=== PATIENT | male | born 1945 | race Caucasian/White ===

== ENCOUNTER → 2017-05-13 | Outpatient (CLI) | payer MEDICARE, BC, OTHER ==
[2017-05-13 08:42] LABS: ALANINE AMINOTRANSFERASE 36 U/L (21-72); ALBUMIN 4.3 g/dL (3.5-5.0); ALKALINE PHOSPHATASE 68 U/L (38-126); ASPARTATE AMINO TRANSFERASE 24 U/L (17-59); BILIRUBIN,DIRECT 0.4 mg/dL (0.0-0.4); BILIRUBIN,TOTAL 0.7 mg/dL (0.2-1.3); CHOLESTEROL 90.75 mg/dL (0-200); Direct HDL 27 mg/dL (>40); TOTAL PROTEIN 6.7 g/dL (6.3-8.2); TRIGLYCERIDES 82 mg/dL (<150)
[2017-05-13 08:56] LABS: DIRECT LDL 47 mg/dL (<100)
== END ==
LOC: OD 07:07
PROVIDERS: ATTEND Specialist
DX: I25.10 Atherosclerotic heart disease of native coronary artery without angina pectoris (principal); Z95.1 Presence of aortocoronary bypass graft; R01.1 Cardiac murmur, unspecified; E78.5 Hyperlipidemia, unspecified; I34.0 Nonrheumatic mitral (valve) insufficiency; I36.1 Nonrheumatic tricuspid (valve) insufficiency; I44.7 Left bundle-branch block, unspecified; I10 Essential (primary) hypertension; E66.9 Obesity, unspecified; Z79.899 Other long term (current) drug therapy
CPT/HCPCS: 36415; 80061; 80076

== ENCOUNTER → 2017-09-24 | Outpatient (CLI) | payer MEDICARE, BC, OTHER ==
[2017-09-24 08:46] LABS: ALANINE AMINOTRANSFERASE 31 U/L (21-72); ALBUMIN 4.4 g/dL (3.5-5.0); ALKALINE PHOSPHATASE 62 U/L (38-126); ANION GAP 12 (5-19); ASPARTATE AMINO TRANSFERASE 25 U/L (17-59); BILIRUBIN,DIRECT 0.1 mg/dL (0.0-0.4); BILIRUBIN,TOTAL 0.3 mg/dL (0.2-1.3); BLOOD UREA NITROGEN 15 mg/dL (7-20); CARBON DIOXIDE 24 mmol/L (22-30); CHLORIDE 109 mmol/L (98-107); CHOLESTEROL 102.19 mg/dL (0-200); GLUCOSE 95 mg/dL (75-110); POTASSIUM 4.6 mmol/L (3.6-5.0); SODIUM 144.5 mmol/L (137-145); TOTAL PROTEIN 6.5 g/dL (6.3-8.2); TRIGLYCERIDES 67 mg/dL (<150)
[2017-09-24 08:57] LABS: DIRECT LDL 59 mg/dL (<100)
== END ==
LOC: OD 07:38
PROVIDERS: ATTEND Internal Medicine
DX: I25.10 Atherosclerotic heart disease of native coronary artery without angina pectoris (principal); Z95.1 Presence of aortocoronary bypass graft; R01.1 Cardiac murmur, unspecified; E78.5 Hyperlipidemia, unspecified; I34.0 Nonrheumatic mitral (valve) insufficiency; I36.1 Nonrheumatic tricuspid (valve) insufficiency; I44.7 Left bundle-branch block, unspecified; I10 Essential (primary) hypertension; E66.9 Obesity, unspecified; Z79.899 Other long term (current) drug therapy
CPT/HCPCS: 36415; 80053; 80061

== ENCOUNTER → 2018-03-30 | Outpatient (CLI) | payer MEDICARE, BC, OTHER ==
[2018-03-30 08:59] LABS: ALANINE AMINOTRANSFERASE 36 U/L (21-72); ALBUMIN 3.9 g/dL (3.5-5.0); ALKALINE PHOSPHATASE 59 U/L (38-126); ANION GAP 9 (5-19); ASPARTATE AMINO TRANSFERASE 27 U/L (17-59); BILIRUBIN,DIRECT 0.3 mg/dL (0.0-0.4); BILIRUBIN,TOTAL 0.5 mg/dL (0.2-1.3); BLOOD UREA NITROGEN 16 mg/dL (7-20); CALCIUM 9.6 mg/dL (8.4-10.2); CARBON DIOXIDE 24 mmol/L (22-30); CHLORIDE 108 mmol/L (98-107); GLUCOSE 107 mg/dL (75-110); POTASSIUM 4.5 mmol/L (3.6-5.0); TOTAL PROTEIN 6.7 g/dL (6.3-8.2); TRIGLYCERIDES 123 mg/dL (<150)
[2018-03-30 09:10] LABS: DIRECT LDL 55 mg/dL (<100)
== END ==
LOC: OD 07:11
PROVIDERS: ATTEND Internal Medicine
DX: I10 Essential (primary) hypertension (principal); I25.10 Atherosclerotic heart disease of native coronary artery without angina pectoris; E78.5 Hyperlipidemia, unspecified; Z79.899 Other long term (current) drug therapy
CPT/HCPCS: 36415; 80053; 80061

== ENCOUNTER → 2018-12-15 | Outpatient (CLI) | payer MEDICARE, BC, OTHER ==
[2018-12-15 08:25] LABS: ALANINE AMINOTRANSFERASE 47 U/L (21-72); ALKALINE PHOSPHATASE 60 U/L (38-126); ASPARTATE AMINO TRANSFERASE 39 U/L (17-59); BILIRUBIN,DIRECT 0.3 mg/dL (0.0-0.4); BILIRUBIN,TOTAL 0.5 mg/dL (0.2-1.3); CHOLESTEROL 90.92 mg/dL (0-200); TOTAL PROTEIN 6.7 g/dL (6.3-8.2); TRIGLYCERIDES 149 mg/dL (<150)
[2018-12-15 08:36] LABS: DIRECT LDL 52 mg/dL (<100)
== END ==
LOC: OD 07:16
PROVIDERS: ATTEND Internal Medicine
DX: I25.10 Atherosclerotic heart disease of native coronary artery without angina pectoris (principal); Z95.1 Presence of aortocoronary bypass graft; R01.1 Cardiac murmur, unspecified; E78.5 Hyperlipidemia, unspecified; I34.0 Nonrheumatic mitral (valve) insufficiency; I36.1 Nonrheumatic tricuspid (valve) insufficiency; I44.7 Left bundle-branch block, unspecified; I10 Essential (primary) hypertension; E66.9 Obesity, unspecified; Z79.899 Other long term (current) drug therapy
CPT/HCPCS: 36415; 80061; 80076

== ENCOUNTER → 2019-03-16 | Outpatient (CLI) | payer MEDICARE, BC, OTHER ==
[2019-03-16 10:37] LABS: ABSOLUTE EOSINOPHILS # (AUTO) 0.2 10^3/uL (0.0-0.6); ABSOLUTE LYMPHOCYTES (AUTO) 1.5 10^3/uL (0.5-4.7); ABSOLUTE MONOCYTES (AUTO) 0.7 10^3/uL (0.1-1.4); ABSOLUTE NEUT (AUTO) 4.8 10^3/uL (1.7-8.2); BASOPHILS % (AUTO) 0.6 % (0-2); EOSINOPHILS % (AUTO) 2.8 % (0-6); HEMATOCRIT 43.1 % (37.9-51.0); HEMOGLOBIN 14.6 g/dL (13.5-17.0); LYMPHOCYTES % (AUTO) 20.5 % (13-45); MEAN CORPUSCULAR HEMOGLOBIN 29.9 pg (27.0-33.4); MEAN CORPUSCULAR HGB CONC 33.8 g/dL (32.0-36.0); MEAN CORPUSCULAR VOLUME 89 fl (80-97); MONOCYTES % (AUTO) 9.6 % (3-13); PLATELET COUNT 164 10^3/uL (150-450); RED BLOOD COUNT 4.87 10^6/uL (4.35-5.55); SEGMENTED NEUTROPHILS % (AUTO) 66.5 % (42-78); TOTAL CELLS COUNTED % (AUTO) 100 %; WHITE BLOOD COUNT 7.3 10^3/uL (4.0-10.5)
[2019-03-16 11:03] LABS: ALBUMIN 4.1 g/dL (3.5-5.0); ALKALINE PHOSPHATASE 59 U/L (38-126); ANION GAP 9 (5-19); ASPARTATE AMINO TRANSFERASE 29 U/L (17-59); BILIRUBIN,DIRECT 0.2 mg/dL (0.0-0.4); BILIRUBIN,TOTAL 0.7 mg/dL (0.2-1.3); BLOOD UREA NITROGEN 18 mg/dL (7-20); CALCIUM 9.7 mg/dL (8.4-10.2); CARBON DIOXIDE 23 mmol/L (22-30); CHLORIDE 107 mmol/L (98-107); CHOLESTEROL 104.27 mg/dL (0-200); GLUCOSE 119 mg/dL (75-110); POTASSIUM 4.3 mmol/L (3.6-5.0); TOTAL PROTEIN 6.5 g/dL (6.3-8.2); TRIGLYCERIDES 203 mg/dL (<150)
[2019-03-16 11:15] LABS: DIRECT LDL 64 mg/dL (<100)
[2019-03-16 11:19] LABS: VLDL CHOLESTEROL 40.6 mg/dL (10-31)
== END ==
LOC: OD 09:45
PROVIDERS: ATTEND Specialist
DX: I25.10 Atherosclerotic heart disease of native coronary artery without angina pectoris (principal); Z95.1 Presence of aortocoronary bypass graft; R01.1 Cardiac murmur, unspecified; E78.5 Hyperlipidemia, unspecified; I34.0 Nonrheumatic mitral (valve) insufficiency; I36.1 Nonrheumatic tricuspid (valve) insufficiency; I44.7 Left bundle-branch block, unspecified; I10 Essential (primary) hypertension; E11.9 Type 2 diabetes mellitus without complications; E66.9 Obesity, unspecified; R94.31 Abnormal electrocardiogram [ECG] [EKG]; Z79.899 Other long term (current) drug therapy
CPT/HCPCS: 36415; 80053; 80061; 83036; 85025

== ENCOUNTER → 2019-09-12 | Outpatient (CLI) | payer MEDICARE, BC, OTHER ==
[2019-09-12 08:45] LABS: ABSOLUTE BASOPHILS # (AUTO) 0.1 10^3/uL (0.0-0.2); ABSOLUTE EOSINOPHILS # (AUTO) 0.1 10^3/uL (0.0-0.6); ABSOLUTE LYMPHOCYTES (AUTO) 1.6 10^3/uL (0.5-4.7); ABSOLUTE NEUT (AUTO) 5.2 10^3/uL (1.7-8.2); BASOPHILS % (AUTO) 0.7 % (0-2); EOSINOPHILS % (AUTO) 1.5 % (0-6); HEMATOCRIT 44.9 % (37.9-51.0); HEMOGLOBIN 15.7 g/dL (13.5-17.0); LYMPHOCYTES % (AUTO) 20.4 % (13-45); MEAN CORPUSCULAR HEMOGLOBIN 31.5 pg (27.0-33.4); MEAN CORPUSCULAR HGB CONC 34.9 g/dL (32.0-36.0); MEAN CORPUSCULAR VOLUME 90 fl (80-97); MONOCYTES % (AUTO) 12.2 % (3-13); PLATELET COUNT 192 10^3/uL (150-450); RED BLOOD COUNT 4.97 10^6/uL (4.35-5.55); RED CELL DISTRIBUTION WIDTH 14.3 % (11.5-14.0); SEGMENTED NEUTROPHILS % (AUTO) 65.2 % (42-78); TOTAL CELLS COUNTED % (AUTO) 100 %
[2019-09-12 09:34] LABS: ERYTHROCYTE SEDIMENTATION RATE 19 mm/hr (0-20)
== END ==
LOC: OD 07:45
PROVIDERS: ATTEND Physician Assistant
DX: M47.812 Spondylosis without myelopathy or radiculopathy, cervical region (principal)
CPT/HCPCS: 36415; 85025; 85652; 86140

== ENCOUNTER → 2019-12-22 | Outpatient (CLI) | payer MEDICARE, BC, OTHER ==
--- NOTE | 2019-12-22 14:51 | RADIOLOGY REPORT (SQ) ---
EXAM DESCRIPTION: FOOT LEFT COMPLETE IMAGES COMPLETED DATE/TIME: 12/22/2019 1:56 pm REASON FOR STUDY: PAIN IN LT ANKLE AND JOINTS OF LT FOOT M25.572 PAIN IN LEFT ANKLE AND JOINTS OF L EFT FOOT COMPARISON: None. NUMBER OF VIEWS: Three views. TECHNIQUE: AP, lateral and oblique radiographic images acquired of the left foot. LIMITATIONS: None. FINDINGS: MINERALIZATION: Normal. BONES: No acute fracture. There is a large os naviculare. Plantar calcaneal spur. JOINTS: No effusions. SOFT TISSUES: No soft tissue swelling. No foreign body. OTHER: No other significant finding. IMPRESSION: Calcaneal spur. Os naviculare. No acute finding. TECHNICAL DOCUMENTATION: JOB ID: [id number] 2010 [employer]- All Rights Reserved Reading location - IP/workstation name: [email or web address]
--- NOTE | 2019-12-22 14:52 | RADIOLOGY REPORT (SQ) ---
EXAM DESCRIPTION: TIBIA FIBULA LEFT IMAGES COMPLETED DATE/TIME: 12/22/2019 1:56 pm REASON FOR STUDY: PAIN IN LEFT ANKLE AND JOINTS OF LEFT FOOT M25.572 PAIN IN LEFT ANKLE AND JOINTS OF LEFT FOOT COMPARISON: None. NUMBER OF VIEWS: Two views. TECHNIQUE: Two radiographic images acquired of the left tibia and fibula to include the knee and ank le in at least one projection. LIMITATIONS: None. FINDINGS: MINERALIZATION: Normal. BONES: No acute fracture or dislocation. No worrisome bone lesions. SOFT TISSUES: No obvious swelling or foreign body. OTHER: Vascular clips. IMPRESSION: NEGATIVE STUDY OF THE LEFT TIBIA AND FIBULA. NO RADIOGRAPHIC EVIDENCE OF ACUTE INJURY. TECHNICAL DOCUMENTATION: JOB ID: [id number] 2010 [employer]- All Rights Reserved Reading location - IP/workstation name: [email or web address]
--- NOTE | 2019-12-22 14:53 | RADIOLOGY REPORT (SQ) ---
EXAM DESCRIPTION: ANKLE LEFT COMPLETE IMAGES COMPLETED DATE/TIME: 12/22/2019 1:57 pm REASON FOR STUDY: PAIN IN LEFT ANKLE AND JOINTS OF LEFT FOOT M25.572 PAIN IN LEFT ANKLE AND JOINTS OF LEFT FOOT COMPARISON: None. NUMBER OF VIEWS: Three views. TECHNIQUE: AP, lateral, and oblique radiographic images acquired of the left ankle. LIMITATIONS: None. FINDINGS: MINERALIZATION: Normal. BONES: No fracture dislocation. Plantar calcaneal spur. JOINTS: No effusions. SOFT TISSUES: No soft tissue swelling. No foreign body. OTHER: No other significant finding. IMPRESSION: Calcaneal spur. TECHNICAL DOCUMENTATION: JOB ID: [id number] 2010 [employer]- All Rights Reserved Reading location - IP/workstation name: [email or web address]
== END ==
LOC: RAD 11:56
PROVIDERS: ATTEND Specialist
DX: M77.32 Calcaneal spur, left foot (principal); M25.572 Pain in left ankle and joints of left foot; M79.89 Other specified soft tissue disorders

== ENCOUNTER 2020-02-28 11:16 | Observation (INO) | payer MEDICARE, BC, OTHER ==
--- NOTE | 2020-02-28 12:23 | ER Document Report ---
ED Medical Screen (RME) - General Chief Complaint: Shortness Of Breath Stated Complaint: SHORTNESS OF BREATH Time Seen by Provider: 02/28/20 12:20 Primary Care Provider: GRIS INFANTE MD [Primary Care Provider] - Follow up as needed Mode of Arrival: Wheelchair Information source: Patient Notes: 74-year-old male presented to ED for shortness of breath. He states he saw Dr. Hicks on Wednesday and pulmonary Wednesday evening he was having shortness of breath difficulty sleeping with tightness to his chest. States he cannot sleep all night he thought might be the hurricane but then again last night he had the shortness of breath all day yesterday and all night could not sleep so he called to get in to see [facility] and they could do a tele-visit this afternoon so instead he came to the emergency room. He states he does have a history of cardiac cath with stents. He states he is very short of breath and does need the COVID testing. I have greeted and performed a rapid initial assessment of this patient. A comprehensive ED assessment and evaluation of the patient, analysis of test results and completion of medical decision making process will be conducted by an additional ED providers. TRAVEL OUTSIDE OF THE [place] IN LAST 30 DAYS: No - Related Data Allergies/Adverse Reactions: No Known Allergies Allergy (Verified 12/05/15 22:45) Past Medical History - Past Medical History Cardiac Medical History: Reports: Hx Coronary Artery Disease, Hx Hypertension Denies: Hx Heart Attack Pulmonary Medical History: Denies: Hx Asthma, Hx Bronchitis, Hx COPD, Hx Pneumonia Neurological Medical History: Denies: Hx Cerebrovascular Accident, Hx Seizures Renal/ Medical History: Reports: Hx Kidney Stones GI Medical History: Reports: Hx Diverticulitis Musculoskeltal Medical History: Reports Hx Arthritis Psychiatric Medical History: Denies: Hx Depression Past Surgical History: Reports: Hx Cardiac Surgery - bypass -6, Hx Coronary Artery Bypass Graft - 6 vessel bypass in the , Hx Tonsillectomy - Immunizations Hx Diphtheria, Pertussis, Tetanus Vaccination: Yes Physical Exam - Vital signs Vitals: Temp Pulse Resp BP Pulse Ox 99.2 F 70 15 167/63 H 95 02/28/20 11:22 02/28/20 11:22 02/28/20 11:22 02/28/20 11:22 02/28/20 11:22 Course - Vital Signs Vital signs: Temp Pulse Resp BP Pulse Ox 99.2 F 70 15 167/63 H 95 02/28/20 11:22 02/28/20 11:22 02/28/20 11:22 02/28/20 11:22 02/28/20 11:22 Doctor's Discharge - Discharge Referrals: GRIS INFANTE MD [Primary Care Provider] - Follow up as needed
--- NOTE | 2020-02-28 14:11 | RADIOLOGY REPORT (SQ) ---
EXAM DESCRIPTION: CHEST SINGLE VIEW IMAGES COMPLETED DATE/TIME: 02/28/2020 2:03 pm REASON FOR STUDY: Chest tightness short of breath previous cath COMPARISON: 10/24/2015 NUMBER OF VIEWS: One view. TECHNIQUE: Single frontal radiographic view of the chest acquired. LIMITATIONS: None. FINDINGS: LUNGS AND PLEURA: No opacities, masses or pneumothorax. No pleural effusion. MEDIASTINUM AND HILAR STRUCTURES: No masses. Contour normal. HEART AND VASCULAR STRUCTURES: Heart enlarged without failure. Normal vasculature. BONES: No acute findings. HARDWARE: Midline surgical changes. OTHER: No other significant finding. IMPRESSION: HEART ENLARGED WITHOUT FAILURE. NO OTHER SIGNIFICANT RADIOGRAPHIC FINDING IN THE CHEST. TECHNICAL DOCUMENTATION: JOB ID: [id number] 2010 [employer]- All Rights Reserved Reading location - IP/workstation name: [email or web address]
[2020-02-28] MEDS ORDERED: ASPIRIN 325 MG TABLET PO ONE (14:46)
--- NOTE | 2020-02-28 14:53 | ER Document Report ---
ED General - General Chief Complaint: Shortness Of Breath Stated Complaint: SHORTNESS OF BREATH Time Seen by Provider: 02/28/20 12:20 Primary Care Provider: GRIS INFANTE MD [ACTIVE STAFF] - Follow up as needed Mode of Arrival: Wheelchair Notes: 74-year-old male with a history of 6 way bypass in 1993 presents emergency department complaining that he has not been sleeping well for the past several days secondary to shortness of breath whenever he tries to sleep though he specifically denies orthopnea. Patient states that given the symptoms he thought he should be tested for coronavirus. He made an appointment to be tested [facility] this afternoon however when he was walking through the store today he stated that he was very short of breath and had to get an electric scooter in order to navigate the store rather than walking and also had some mild chest pain associated with this. Patient stated he was so short of breath that he felt he should come to the emergency department rather than keeping his appointment with [facility]. 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 TRAVEL OUTSIDE OF THE [place] IN LAST 30 DAYS: No - Related Data Allergies/Adverse Reactions: No Known Allergies Allergy (Verified 12/05/15 22:45) Past Medical History - General Information source: Patient - Social History Smoking Status: Never Smoker Frequency of alcohol use: 1 glass of wine a day. Drug Abuse: None Family History: Reviewed & Not Pertinent - Past Medical History Cardiac Medical History: Reports: Hx Coronary Artery Disease, Hx Hypertension Denies: Hx Heart Attack Pulmonary Medical History: Denies: Hx Asthma, Hx Bronchitis, Hx COPD, Hx Pneumonia Neurological Medical History: Denies: Hx Cerebrovascular Accident, Hx Seizures Renal/ Medical History: Reports: Hx Kidney Stones GI Medical History: Reports: Hx Diverticulitis Musculoskeletal Medical History: Reports Hx Arthritis Psychiatric Medical History: Denies: Hx Depression Past Surgical History: Reports: Hx Cardiac Surgery - bypass -6, Hx Coronary Artery Bypass Graft - 6 vessel bypass in the , Hx Tonsillectomy - Immunizations Hx Diphtheria, Pertussis, Tetanus Vaccination: Yes Hx Pneumococcal Vaccination: 04/25/16 Review of Systems - Review of Systems Constitutional: No symptoms reported EENT: No symptoms reported Cardiovascular: See HPI, Chest pain Respiratory: See HPI, Short of breath Gastrointestinal: No symptoms reported -: Yes All other systems reviewed and negative Physical Exam - Vital signs Vitals: Temp Pulse Resp BP Pulse Ox 99.2 F 70 15 167/63 H 95 02/28/20 11:22 02/28/20 11:22 02/28/20 11:22 02/28/20 11:22 02/28/20 11:22 Interpretation: Hypertensive - Notes Notes: GENERAL: Alert, interacts well. No acute distress. HEAD: Normocephalic, atraumatic EYES: Pupils equal, round and reactive to light, extraocular movements intact. ENT: Oral mucosa moist, tongue midline. NECK: Full range of motion, supple, trachea midline. LUNGS: Trace rales in the bases, no wheezes, no respiratory distress. HEART: Regular rate and rhythm, no murmurs, gallops, rubs. ABDOMEN: Soft, nontender, nondistended, bowel sounds present in all 4 quadrants. EXTREMITIES: Moves all 4 extremities spontaneously, 1+ pitting edema bilateral lower extremities, radial and dorsalis pedis pulses 2/4 bilaterally. No cyanosis. NEUROLOGICAL: Alert and oriented x3, normal speech. PSYCH: Normal mood, normal affect. SKIN: Warm, Dry. Course - Re-evaluation Re-evalutation: 02/28/20 20:56 CBC unremarkable, CMP grossly unremarkable, troponin elevated at 0.124, proBNP elevated at 2290. COVID swab is pending. Chest x-ray shows cardiac enlargement without any failure. EKG is not acutely ischemic. Patient's chest pain is completely gone at this time. Discussed case with Dr. Infante who is his primary rig operator, Dr. Hicks requests that we obtain a CTA of the chest to look for pulmonary embolism. Feels that the patient can be appropriately managed here at [facility], no indication for transfer at this time. Agrees to consult on the patient as needed. 02/28/20 21:[address] Shepherd, agrees to admit the patient to a telemetry care unit bed. Aware that a CT angiogram of the chest is pending. - Vital Signs Vital signs: Temp Pulse Resp BP Pulse Ox 99.2 F 70 15 167/63 H 96 02/28/20 14:05 02/28/20 11:22 02/28/20 11:22 02/28/20 11:22 02/28/20 14:00 - Laboratory Result Diagrams: 02/28/20 16:00 02/28/20 17:17 Laboratory results interpreted by me: 02/28/20 02/28/20 02/28/20 16:00 17:17 19:10 RDW 14.2 H Glucose 143 H ALT 54 H NT-Pro-B Natriuret Pep 2290 H - EKG Interpretation by Me Additional EKG results interpreted by me: 02/28/20 20:58 EKG shows known atrial fibrillation at a rate of 66, left bundle branch block, does not meet sgarbossa criteria per my interpretation. Discharge - Discharge Clinical Impression: Elevated troponin, Atrial fibrillation with controlled ventricular rate Condition: Fair Disposition: ADMITTED OBSERVATION Admitting Provider: Cora (Hospitalist) Unit Admitted: Telemetry Referrals: GRIS INFANET MD [ACTIVE STAFF] - Follow up as needed
[2020-02-28 16:12] LABS: ABSOLUTE BASOPHILS # (AUTO) 0.1 10^3/uL (0.0-0.2); ABSOLUTE LYMPHOCYTES (AUTO) 1.6 10^3/uL (0.5-4.7); ABSOLUTE MONOCYTES (AUTO) 0.9 10^3/uL (0.1-1.4); ABSOLUTE NEUT (AUTO) 7.2 10^3/uL (1.7-8.2); BASOPHILS % (AUTO) 0.6 % (0-2); EOSINOPHILS % (AUTO) 0.2 % (0-6); HEMATOCRIT 45.6 % (37.9-51.0); HEMOGLOBIN 15.7 g/dL (13.5-17.0); LYMPHOCYTES % (AUTO) 16.7 % (13-45); MEAN CORPUSCULAR HEMOGLOBIN 31.2 pg (27.0-33.4); MEAN CORPUSCULAR HGB CONC 34.4 g/dL (32.0-36.0); MEAN CORPUSCULAR VOLUME 91 fl (80-97); MONOCYTES % (AUTO) 9.1 % (3-13); PLATELET COUNT 173 10^3/uL (150-450); RED BLOOD COUNT 5.02 10^6/uL (4.35-5.55); RED CELL DISTRIBUTION WIDTH 14.2 % (11.5-14.0); SEGMENTED NEUTROPHILS % (AUTO) 73.4 % (42-78); TOTAL CELLS COUNTED % (AUTO) 100 %; WHITE BLOOD COUNT 9.9 10^3/uL (4.0-10.5)
[2020-02-28 17:51] LABS: ALBUMIN 4.1 g/dL (3.5-5.0); ALKALINE PHOSPHATASE 71 U/L (38-126); ANION GAP 6 (5-19); ASPARTATE AMINO TRANSFERASE 43 U/L (17-59); BILIRUBIN,TOTAL 0.9 mg/dL (0.2-1.3); BLOOD UREA NITROGEN 14 mg/dL (7-20); CALCIUM 9.5 mg/dL (8.4-10.2); CARBON DIOXIDE 26 mmol/L (22-30); CHLORIDE 106 mmol/L (98-107); CREATINE KINASE 89 U/L (55-170); GLUCOSE 143 mg/dL (75-110); POTASSIUM 4.2 mmol/L (3.6-5.0); TOTAL PROTEIN 6.8 g/dL (6.3-8.2)
--- NOTE | 2020-02-28 18:20 | EKG REPORT ---
SEVERITY:- ABNORMAL ECG - ATRIAL FIBRILLATION LEFT BUNDLE BRANCH BLOCK : Confirmed by: Ever Live MD 28-Feb-2020 18:19:35
[2020-02-28 19:54] LABS: TROPONIN I 0.124 ng/mL
[2020-02-28] MEDS ORDERED: ENOXAPARIN SODIUM INJ 120 MG/0.8 ML DISP.SYRIN SUBCUT ONE (20:59)
--- NOTE | 2020-02-28 22:09 | RADIOLOGY REPORT (SQ) ---
PROCEDURE: CTA chest with contrast Completed dated and timed: 02/28/2020 9:25 PM CLINICAL HISTORY: 74 years Male chest pain, SOB, r/o PE COMPARISON: None. TECHNIQUE: Contiguous axial images were obtained through the chest during the infusion of IV contrast. Reformatted images obtained. MIP reformatted images obtained. This exam was performed according to our department optimization program which includes automated exposure control, adjustment of the mA and/or kv according to patient size and/or use of iterative reconstruction technique. FINDINGS: Small bilateral effusions. Cardiac enlargement. Pulmonary arteries are prominent suggesting hypertension. No evidence of filling defect to suggest pulmonary embolus. Scattered small mediastinal lymph nodes. Aorta is normal in caliber. Fatty infiltration of the liver Coronary and aortic calcification. No acute consolidation. IMPRESSION:No evidence of pulmonary embolus Basilar atelectasis and small effusions Fatty infiltration of the liver Cardiac enlargement
--- NOTE | 2020-02-28 22:35 | PDOC CONSULTATION ---
Consultation-Blank Consultation: CARDIOLOGY CONSULTATION by Dr. Radha Pierce on 02/28/2020. Patient seen at 1 PM. 60 minutes spent as patient more than 50% time spent in direct patient care. REASON FOR CONSULTATION: Patient of mine admitted with history of dyspnea on exertion and atrial fibrillation with slow ventricular response. CONSULT REQUESTING PHYSICIAN: Dr. Robert Montero. [facility] [place] hospitalist physician group. HISTORY OF PRESENT ILLNESS: Patient is a 74-year-old male with known history of coronary artery disease, history of coronary artery bypass graft surgery, history of prior myocardial infarction with no recent anginal symptoms, history of hypertension and history of mild cardiomyopathy admitted with 2 to 3 days of progressive dyspnea on exertion. The patient is also found to be in atrial fibrillation. He has chronic left bundle branch block pattern. He denies any PND orthopnea or leg edema. There is no palpitations or syncope. It is not clear as to how long he has had this atrial fibrillation. He has no dizziness or syncope or near syncope. There is no TIA CVA symptoms. Past Medical History Cardiac Medical History: Reports: , Congestive Heart Failure - Chronic combined systolic and diastolic congestive heart failure, Coronary Artery Disease, Hyperlipidema, Hypertension Denies: DVT, Myocardial Infarction, Peripheral Vascular Disease, Pulmonary Embolism Pulmonary Medical History: Denies: Asthma, Bronchitis, Chronic Obstructive Pulmonary Disease (COPD), Pneumonia, Respiratory Failure, Sleep Apnea EENT Medical History: Reports: Eyes - Wears eyeglasses Denies: Ears - Hearing aids Neurological Medical History: Denies: Hemorrhagic CVA, Ischemic CVA, Seizures Endocrine Medical History: Reports: Obesity Denies: Diabetes Mellitus Type 1, Diabetes Mellitus Type 2, Hyperthyroidism, Hypothyroidism Renal/ Medical History: Reports: Nephrolithiasis, Other - Benign prostatic hyperplasia Denies: Chronic Kidney Disease Malignancy Medical History: Reports: None GI Medical History: Reports: Diverticulitis Denies: Cirrhosis, Crohn's Disease, Gastroesophageal Reflux Disease, Hepatitis, Peptic Ulcer Disease, Ulcerative Colitis Musculoskeltal Medical History: Reports: Arthritis Denies: Fibromyalgia, Gout Skin Medical History: Denies: Eczema, Psoriasis Psychiatric Medical History: Denies: Alcohol Dependency, Depression, Substance Abuse, Tobacco Dependency Traumatic Medical History: Reports: None Hematology: Denies: Anemia, Bleeding Tendencies Infectious Medical History: Reports: None Past Surgical History Past Surgical History: Reports: Cardiac Catheterization, Coronary Artery Bypass Graft - 6 vessel bypass in the 1993, Tonsillectomy Social History Information Source: Patient Lives with: Spouse/Significant other Smoking Status: Former Smoker Electronic Cigarette use?: No Frequency of Alcohol Use: Occasional Hx Recreational Drug Use: No Drugs: None Hx Prescription Drug Abuse: No - Advance Directive Resuscitation Status: Full Code Surrogate healthcare decision maker:: Kylah Lynn Family History Family History: CAD - Father, Malignancy - Mother Parental Family History Reviewed: Yes Children Family History Reviewed: No Sibling(s) Family History Reviewed.: Yes Medication/Allergy Home Medications: Atenolol [Tenormin 25 mg Tablet] 25 mg PO DAILY 11/06/11 Clopidogrel Bisulfate [Plavix 75 mg Tablet] 75 mg PO DAILY 11/06/11 Multivitamin [Multivitamins] 1 cap PO DAILY 11/06/11 Telmisartan [Micardis 20 mg Tablet] 20 mg PO Q12 11/06/11 Ezetimibe [Zetia 10 mg Tablet] 10 mg PO DAILY 11/24/13 Rosuvastatin Calcium [Crestor 20 mg Tablet] 20 mg PO DAILY 12/17/15 [place]-3/Dha/Epa/Fish Oil [Fish Oil 1,000 mg Softgel] 1 cap PO DAILY 02/28/20 Furosemide [Lasix 20 mg Tablet] 20 mg PO QAM 02/29/20 Isosorbide Mononitrate [Imdur 60 mg Tablet.er] 30 mg PO BID 02/29/20 Multivit-Min/FA/Lycopen/Lutein [Centrum Silver Men Tablet] 1 each PO DAILY 02/29/20 Allergies/Adverse Reactions: No Known Allergies Allergy (Verified 12/05/15 22:45) His current medications have been reviewed as per MAR. RESUSCITATION STATUS: The patient is a full code. His daughter is a surrogate healthcare decision maker. Review of Systems Constitutional: ABSENT: chills Eyes: ABSENT: visual disturbances, other - Eye pain Ears: ABSENT: hearing changes, other - Ear pain Nose, Mouth, and Throat: ABSENT: headache(s), sore throat Cardiovascular: PRESENT: as per HPI, chest pain - Tightness, dyspnea on exertion. ABSENT: edema, orthropnea, palpitations Respiratory: PRESENT: as per HPI, dyspnea. ABSENT: cough Gastrointestinal: ABSENT: abdominal pain, constipation, diarrhea, nausea, vomiting Genitourinary: ABSENT: dysuria, hematuria Musculoskeletal: ABSENT: joint swelling, muscle weakness Integumentary: ABSENT: pruritus, rash Neurological: ABSENT: confusion, convulsions, focal weakness, memory loss, syncope Psychiatric: ABSENT: anxiety, depression Endocrine: ABSENT: cold intolerance, heat intolerance Hematologic/Lymphatic: ABSENT: easy bleeding, easy bruising Allergic/Immunologic: ABSENT: seasonal rhinorrhea PHYSICAL EXAMINATION: The patient is morbidly obese. In no acute distress HEAD: Is atraumatic normocephalic. EYES: Pupils are equal round regular reactive light accommodation. Extraocular movements are normal. There is no conjunctival pallor. There is no scleral icterus. EARS: Tympanic membranes are intact. External auditory canals are clear. NOSE: There is no deviated nasal septum. There is no inflammation nasal mucous membrane. MOUTH: Mucous membranes of mouth are moist. Tongue is moist. There is no ulcers. There is no bleeding from the gums. THROAT: There is no redness of the oropharynx. There is no exudates. SKIN: There is no skin rashes. There is no delfina-care ecchymosis. There is no skin lesions. NECK: Is supple. There is no JVD carotids are equal there is no bruit there is no lymphadenopathy. There is no goiter. LUNGS: Clear to auscultation percussion. Heart S1-S2 is heard. There is no S3 gallop. There is no S4 gallop. S1 of variable intensity. There is systolic murmur left sternal border and the apex there is no rub. ABDOMEN: Is soft obese nontender there is no hepatosplenomegaly. Bowel sounds are well heard. Extremities femorals are deep. There is no femoral bruits. Leg pulses are well felt. There is no pedal edema. There is no DVT or cellulitis. There is no cyanosis or clubbing. CRISIS MENTAL HEALTH THERAPIST: Patient is conscious awake alert oriented x3 with no focal deficit. PSYCHIATRIC: The patient judgment site are intact his affect is normal. His EKG shows atrial fibrillation with slow ventricular response. Left bundle branch block pattern. Chest X-Ray 02/28/20 12:20 IMPRESSION: HEART ENLARGED WITHOUT FAILURE. NO OTHER SIGNIFICANT RADIOGRAPHIC FINDING IN THE CHEST. Chest/Abdomen CTA 02/28/20 20:33 IMPRESSION:No evidence of pulmonary embolus Basilar atelectasis and small effusions Fatty infiltration of the liver Cardiac enlargement Labs- Entire Visit Labs- Entire Visit 02/28/20 02/28/2002/27/20 16:00 16:00 16:00 WBC 9.9 RBC 5.02 Hgb 15.7 Hct 45.6 MCV 91 MCH 31.2 MCHC 34.4 RDW 14.2 H Plt Count 173 Lymph % (Auto) 16.7 [place] % (Auto) 9.1 Eos % (Auto) 0.2 Baso % (Auto) 0.6 Absolute Neuts (auto) 7.2 Absolute Lymphs (auto) 1.6 Absolute Monos (auto) 0.9 Absolute Eos (auto) 0.0 Absolute Basos (auto) 0.1 Seg Neutrophils % 73.4 D-Dimer Sodium Cancelled Potassium Cancelled Chloride Cancelled Carbon Dioxide Cancelled Anion Gap Cancelled BUN Cancelled Creatinine Cancelled Est GFR ( Amer) Cancelled Est GFR (Non-Af Amer) Cancelled Est GFR (MDRD) Non-Af Cancelled Glucose Cancelled Calcium Cancelled Magnesium Cancelled Total Bilirubin Cancelled Direct Bilirubin Cancelled Neonat Total Bilirubin Cancelled Neonat Direct Bilirubin Cancelled Neonat Indirect Bili Cancelled AST Cancelled ALT Cancelled Alkaline Phosphatase Cancelled Creatine Kinase Cancelled CK-MB (CK-2) Troponin I Cancelled C-Reactive Protein NT-Pro-B Natriuret Pep Cancelled Total Protein Cancelled Albumin Cancelled EGFR Cancelled COVID-19 Source COVID-19 (KELVIN) 02/28/20 02/28/20 02/28/20 16:43 17:17 19:10 WBC RBC Hgb Hct MCV MCH MCHC RDW Plt Count Lymph % (Auto) [place] % (Auto) Eos % (Auto) Baso % (Auto) Absolute Neuts (auto) Absolute Lymphs (auto) Absolute Monos (auto) Absolute Eos (auto) Absolute Basos (auto) Seg Neutrophils % D-Dimer Sodium 137.7 Potassium 4.2 Chloride 106 Carbon Dioxide 26 Anion Gap 6 BUN 14 Creatinine 0.88 Est GFR ( Amer) > 60 Est GFR (Non-Af Amer) Est GFR (MDRD) Non-Af > 60 Glucose 143 H Calcium 9.5 Magnesium 2.0 Total Bilirubin 0.9 Direct Bilirubin 0.0 Neonat Total Bilirubin Not Reportable Neonat Direct Bilirubin Not Reportable Neonat Indirect Bili Not Reportable AST 43 ALT 54 H Alkaline Phosphatase 71 Creatine Kinase 89 CK-MB (CK-2) Troponin I 0.124 C-Reactive Protein NT-Pro-B Natriuret Pep 2290 H Total Protein 6.8 Albumin 4.1 EGFR COVID-19 Source NASOPHARYNGEAL COVID-19 (KELVIN) NOT DETECTED IMPRESSION/RECOMMENDATION: 1. Atrial fibrillation with controlled ventricular response..? Duration of atrial fibrillation. The patient is Javier vacs corrected score is is 4. [2 for patient's age 1 for hypertension and one for coronary artery disease]. Hence I have discussed the benefits and risk prophylaxis with Eliquis and the bleeding complications. We will start the patient on Eliquis. Rate is controlled on current beta-leonor dosage. 2. Borderline elevated troponin iron levels. Most likely supply demand m ismatch. Secondary to atrial fibrillation. No definite evidence of non-ST elevation [place]. 3. Dyspnea on exertion this is most likely secondary to patient's atrial fibrillation with loss of atrial kick, and patient is obese, deconditioning and ? Pulmonary hypertension. Will check an echo as an outpatient. 4. Abnormal EKG with the patient showing left bundle branch block pattern. 5. Bradycardia, will decrease the patient's beta-leonor dosage. Would recommend that the patient have a 30-day event monitor to see if the patient has tachybradycardia syndrome. 6. Coronary artery disease: History of prior myocardial infarction and history of coronary bypass graft surgery. No anginal symptoms. Later would recommend that the patient have repeat IV Lexiscan Cardiolite stress test. This can be done as an outpatient. 7. Hypertension: Blood pressure high with reasons to the patient's ARB. 8. High suspicion for obstructive sleep apnea: We will check the patient's nocturnal O2 saturation and also would get an outpatient sleep study. Medications reviewed. Medications adjusted. Medical regimen and management plan discussed with RN provider on the case. Medical decision making is of high complexity. 60 minutes spent as patient more than 50% of time spent direct patient care. Will follow.
[2020-02-29] MEDS ORDERED: ONDANSETRON HCL INJ/PF 4 MG/2 ML SDV IV PRN ×2 (01:10→08:00)
[2020-02-29] MEDS ORDERED: LEVALBUTEROL HCL NEB 0.63 MG/3 ML AMPUL NEB PRN (01:10)
[2020-02-29] MEDS ORDERED: MAG HYDROX/AL HYDROX/SIMETH SUSP 30 ML UDCUP PO PRN (01:10)
[2020-02-29] MEDS ORDERED: MAGNESIUM HYDROXIDE SUSP 30 ML UDCUP PO PRN (01:10)
[2020-02-29] MEDS ORDERED: ACETAMINOPHEN 325 MG TABLET PO PRN (01:20)
[2020-02-29] MEDS ORDERED: GUAIFENESIN SYRP 200 MG/10 ML UDC PO PRN (01:20)
[2020-02-29] MEDS ORDERED: MORPHINE SULFATE 10 MG/ML INJ IV PRN ×4 (01:20→02:00)
[2020-02-29] MEDS ORDERED: MELATONIN 5 MG TABLET PO PRN (01:20)
[2020-02-29] MEDS ORDERED: HYDRALAZINE HCL INJ/PF 20 MG/1 ML SDV IV PRN (01:20)
[2020-02-29] MEDS ORDERED: LORAZEPAM INJ 2 MG/1 ML VIAL IV PRN (01:20)
[2020-02-29 03:03] LABS: CREATINE KINASE MB 2.13 ng/mL (<4.55); TROPONIN I 0.12 ng/mL
--- NOTE | 2020-02-29 06:29 | PDOC H&P ---
History of Present Illness Admission Date/PCP: 02/28/2020 21:23 ABELINO BANUELOS PA-C Patient complains of: Dyspnea History of Present Illness: CRISELDA LYNN is a 74 year old male who presented to the emergency room with a 2-day history of dyspnea. He admits developing dyspnea on the evening of 02/26/2020 which has remained constantly present and progressively worsened to become moderate at rest and is increased to severe with exertion or activity. His dyspnea has been associated with mild generalized anterior chest tightness. He denies other associated or accompanying signs and symptoms. He denies prior similar episodes. He has not identified any additional aggravating or amel iorating factors for his dyspnea. In the emergency room he was found to have chronic atrial fibrillation with a left bundle branch block and a mildly elevated serum troponin at 0.124. His BNP was also mildly elevated at 2290. The emergency room physician contacted Dr. Pierce, his freight sorter, who recommended he be admitted to observation status with a consult for himself to see the patient in the morning. Patient was subsequently admitted to the telemetry unit on observation status. Patient was tested for COVID-19 in the emergency room at his request and will therefore be a patient under investigation on the COVID unit. Past Medical History Cardiac Medical History: Reports: Atrial Fibrillation - Chronic, Congestive Heart Failure - Chronic combined systolic and diastolic congestive heart failure, Coronary Artery Disease, Hyperlipidema, Hypertension Denies: DVT, Myocardial Infarction, Peripheral Vascular Disease, Pulmonary Embolism Pulmonary Medical History: Denies: Asthma, Bronchitis, Chronic Obstructive Pulmonary Disease (COPD), Pneumonia, Respiratory Failure, Sleep Apnea EENT Medical History: Reports: Eyes - Wears eyeglasses Denies: Ears - Hearing aids Neurological Medical History: Denies: Hemorrhagic CVA, Ischemic CVA, Seizures Endocrine Medical History: Reports: Obesity Denies: Diabetes Mellitus Type 1, Diabetes Mellitus Type 2, Hyperthyroidism, Hypothyroidism Renal/ Medical History: Reports: Nephrolithiasis, Other - Benign prostatic hyperplasia Denies: Chronic Kidney Disease Malignancy Medical History: Reports: None GI Medical History: Reports: Diverticulitis Denies: Cirrhosis, Crohn's Disease, Gastroesophageal Reflux Disease, Hepat itis, Peptic Ulcer Disease, Ulcerative Colitis Musculoskeltal Medical History: Reports: Arthritis Denies: Fibromyalgia, Gout Skin Medical History: Denies: Eczema, Psoriasis Psychiatric Medical History: Denies: Alcohol Dependency, Depression, Substance Abuse, Tobacco Dependency Traumatic Medical History: Reports: None Hematology: Denies: Anemia, Bleeding Tendencies Infectious Medical History: Reports: None Past Surgical History Past Surgical History: Reports: Cardiac Catheterization, Coronary Artery Bypass Graft - 6 vessel bypass in the 1994, Tonsillectomy Social History Information Source: Patient Lives with: Spouse/Significant other Smoking Status: Former Smoker Electronic Cigarette use?: No Frequency of Alcohol Use: Occasional Hx Recreational Drug Use: No Drugs: None Hx Prescription Drug Abuse: No - Advance Directive Resuscitation Status: Full Code Surrogate healthcare decision maker:: Kylah Lynn Family History Family History: CAD - Father, Malignancy - Mother Parental Family History Reviewed: Yes Children Family History Reviewed: No Sibling(s) Family History Reviewed.: Yes Medication/Allergy Home Medications: Atenolol [Tenormin 25 mg Tablet] 25 mg PO DAILY 11/06/11 Clopidogrel Bisulfate [Plavix 75 mg Tablet] 75 mg PO DAILY 11/06/11 Multivitamin [Multivitamins] 1 cap PO DAILY 11/06/11 Telmisartan [Micardis 20 mg Tablet] 20 mg PO Q12 11/06/11 Ezetimibe [Zetia 10 mg Tablet] 10 mg PO DAILY 11/24/13 Rosuvastatin Calcium [Crestor 20 mg Tablet] 20 mg PO DAILY 12/17/15 [place]-3/Dha/Epa/Fish Oil [Fish Oil 1,000 mg Softgel] 1 cap PO DAILY 02/28/20 Furosemide [Lasix 20 mg Tablet] 20 mg PO QAM 02/29/20 Isosorbide Mononitrate [Imdur 60 mg Tablet.er] 30 mg PO BID 02/29/20 Multivit-Min/FA/Lycopen/Lutein [Centrum Silver Men Tablet] 1 each PO DAILY 02/29/20 Allergies/Adverse Reactions: No Known Allergies Allergy (Verified 12/05/15 22:45) Review of Systems Constitutional: ABSENT: chills Eyes: ABSENT: visual disturbances, other - Eye pain Ears: ABSENT: hearing changes, other - Ear pain Nose, Mouth, and Throat: ABSENT: headache(s), sore throat Cardiovascular: PRESENT: as per HPI, chest pain - Tightness, dyspnea on exertion. ABSENT: edema, orthropnea, palpitations Respiratory: PRESENT: as per HPI, dyspnea. ABSENT: cough Gastrointestinal: ABSENT: abdominal pain, constipation, diarrhea, nausea, vomiting Genitourinary: ABSENT: dysuria, hematuria Musculoskeletal: ABSENT: joint swelling, muscle weakness Integumentary: ABSENT: pruritus, rash Neurological: ABSENT: confusion, convulsions, focal weakness, memory loss, syncope Psychiatric: ABSENT: anxiety, depression Endocrine: ABSENT: cold intolerance, heat intolerance Hematologic/Lymphatic: ABSENT: easy bleeding, easy bruising Allergic/Immunologic: ABSENT: seasonal rhinorrhea Physical Exam Vital Signs: Temp Pulse Resp BP Pulse Ox 99.2 F 70 15 167/63 H 96 02/28/20 14:05 02/28/20 11:22 02/28/20 11:22 02/28/20 11:22 02/28/20 14:00 Intake & Output 02/26/20 02/27/20 02/28/20 23:59 23:59 23:59 Weight 115.212 kg General appearance: PRESENT: no acute distress, cooperative, morbidly obese Head exam: PRESENT: atraumatic, normocephalic Eye exam: PRESENT: conjunctiva pink. ABSENT: conjunctival injection, scleral icterus Ear exam: PRESENT: normal external ear exam. ABSENT: bleeding, drainage Mouth exam: PRESENT: dry mucosa, neck supple Neck exam: ABSENT: JVD - Absent at 30 degrees of elevation, thyromegaly, tracheal deviation Respiratory exam: PRESENT: rales - Bibasilar fine rales, symmetrical, unlabored Cardiovascular exam: PRESENT: irregular rhythm - Irregularly irregular rate and rhythm. ABSENT: clicks, gallop, rubs Pulses: PRESENT: normal radial pulses, normal dorsalis pedis pul Vascular exam: PRESENT: normal capillary refill. ABSENT: pallor GI/Abdominal exam: PRESENT: normal bowel sounds, soft. ABSENT: tenderness Rectal exam: PRESENT: deferred Extremities exam: PRESENT: other - 2+ pitting bilateral pretibial edema. ABSENT: joint swelling, pedal edema Musculoskeletal exam: ABSENT: deformity, dislocation Neurological exam: PRESENT: alert, oriented to person, oriented to place, oriented to time, oriented to situation, CN II-XII grossly intact. ABSENT: motor sensory deficit Psychiatric exam: PRESENT: appropriate affect, normal mood Skin exam: PRESENT: dry, intact, warm. ABSENT: jaundice, rash, urticaria Results Laboratory Results: 02/28/20 16:00 02/28/20 17:17 08/12/1202/28/20 02/28/20 16:00 16:00 17:17 WBC 9.9 RBC 5.02 Hgb 15.7 Hct 45.6 MCV 91 MCH 31.2 MCHC 34.4 RDW 14.2 H Plt Count 173 Seg Neutrophils % 73.4 Sodium Cancelled 137.7 Potassium Cancelled 4.2 Chloride Cancelled 106 Carbon Dioxide Cancelled 26 Anion Gap Cancelled 6 BUN Cancelled 14 Creatinine Cancelled 0.88 Est GFR ( Amer) Cancelled > 60 Est GFR (Non-Af Amer) Cancelled Glucose Cancelled 143 H Calcium Cancelled 9.5 Magnesium Cancelled 2.0 Total Bilirubin Cancelled 0.9 AST Cancelled 43 Alkaline Phosphatase Cancelled 71 Total Protein Cancelled 6.8 Albumin Cancelled 4.1 02/28/20 02/28/20 02/28/20 16:00 16:00 17:17 Creatine Kinase Cancelled 89 Troponin I Cancelled NT-Pro-B Natriuret Pep Cancelled 02/28/20 19:10 Creatine Kinase Troponin I 0.124 NT-Pro-B Natriuret Pep 2290 H Impressions: Chest X-Ray 02/28/20 12:20 IMPRESSION: HEART ENLARGED WITHOUT FAILURE. NO OTHER SIGNIFICANT RADIOGRAPHIC FINDING IN THE CHEST. Assessment and Plan - Diagnosis (1) Dyspnea Qualifiers: Dyspnea type: shortness of breath Qualified Code(s): R06.02 - Shortness of breath; R06.00 - Dyspnea, unspecified; R06.01 - Orthopnea Is this a current diagnosis for this admission?: Yes (2) Chest pain Qualifiers: Chest pain type: other chest pain Qualified Code(s): R07.89 - Other chest pain; R07.8 - Other chest pain Is this a current diagnosis for this admission?: Yes (3) Elevated troponin Is this a current diagnosis for this admission?: Yes (4) Chronic combined systolic and diastolic congestive heart failure Is this a current diagnosis for this admission?: Yes (5) CAD (coronary artery disease) Qualifiers: Coronary Disease-Associated Artery/Lesion type: unspecified vessel or lesion type [place] vs. transplanted heart: [place] heart Associated angina: without angina Qualified Code(s): I25.10 - Atherosclerotic heart disease of [place] coronary artery without angina pectoris Is this a current diagnosis for this admission?: Yes (6) Hyperlipidemia Qualifiers: Hyperlipidemia type: mixed hyperlipidemia Qualified Code(s): E78.2 - Mixed hyperlipidemia Is this a current diagnosis for this admission?: Yes (7) Atrial fibrillation with controlled ventricular rate Is this a current diagnosis for this admission?: Yes (8) HTN (hypertension) Qualifiers: Hypertension type: essential hypertension Is this a current diagnosis for this admission?: Yes (9) Morbid obesity with BMI of 40.0-44.9, adult Is this a current diagnosis for this admission?: Yes - Plan Summary Summary: Patient will be admitted to the medical floor in a telemetry bed where he will receive routine supportive and symptomatic cares. Cardiology consultation with Dr. Pierce will be obtained. Serial cardiac enzymes will be performed. He will receive morphine sulfate 2 to 4 mg IV every 2 hours as needed for pain. He will receive Ativan 1 mg IV every 4 hours as needed for anxiety or restlessness. He will receive supplemental oxygen via nasal cannula if needed to maintain an adequate oxygen saturation. He will be on a cardiac diet. His usual medications will be resumed, as appropriate, when his medication list has been verified and reconciled. Additional laboratory and/or radiographic evaluations will be obtained as needed. - Time Time Spent with patient: Less than 15 minutes Medications reviewed and adjusted accordingly: Yes Anticipated Discharge Disposition: Home, Self Care Anticipated Discharge Timeframe: within 24 hours - Inpatient Certification Based on my medical assessment, after consideration of the patient's comorbidities, presenting symptoms, or acuity I expect that the services needed warrant INPATIENT care.: No I certify that my determination is in accordance with my understanding of Medicare's requirements for reasonable and necessary INPATIENT services [42 CFR 412.3e].: No
[2020-02-29] MEDS: OMEGA-3 ACID ETHYL ESTERS 1 GM CAPSULE PO SCH (09:26)
[2020-02-29] MEDS: LOSARTAN POTASSIUM 25 MG TABLET PO SCH ×2 (09:26→23:40)
[2020-02-29] MEDS: DOCUSATE SODIUM 100 MG CAPSULE PO SCH ×2 (09:27→18:23)
[2020-02-29] MEDS: MULTIVITAMIN TABLET PO SCH (09:27)
[2020-02-29] MEDS: EZETIMIBE 10 MG TABLET PO SCH (09:27)
[2020-02-29] MEDS: FAMOTIDINE 20 MG TABLET PO SCH ×2 (09:27→23:52)
[2020-02-29 09:40] LABS: CREATINE KINASE MB 2.04 ng/mL (<4.55); TROPONIN I 0.102 ng/mL
[2020-02-29] MEDS ORDERED: ATENOLOL 50 MG TABLET PO SCH (10:00)
[2020-02-29] MEDS ORDERED: CLOPIDOGREL BISULFATE 75 MG TABLET PO SCH (10:00)
--- NOTE | 2020-02-29 12:24 | EKG REPORT ---
SEVERITY:- ABNORMAL ECG - ATRIAL FLUTTER, A-RATE 319 IVCD, CONSIDER ATYPICAL LBBB : Confirmed by: Ever Live MD 29-Feb-2020 12:23:09
[2020-02-29] MEDS: ZINC SULFATE 220 MG CAPSULE PO SCH (13:30)
[2020-02-29] MEDS: HEPARIN SOD (PORCINE) 5,000 UNIT/ML 1 ML VIAL SUBCUT SCH ×2 (13:30→23:39)
[2020-02-29] MEDS: FUROSEMIDE 20 MG TABLET PO SCH (13:30)
[2020-02-29] MEDS: DEXAMETHASONE SOD PHOSPHATE INJ 4 MG/1 ML VIAL IV SCH ×2 (13:30→23:39)
[2020-02-29] MEDS: IPRATROPIUM/ALBUTEROL 0.5-2.5 MG/3 ML AMPUL NEB SCH ×2 (13:43→19:39)
[2020-02-29] MEDS ORDERED: CEFTRIAXONE 1 GM/D5W RTU 1 GM/50 ML RTUPB IV SCH (14:00)
[2020-02-29 15:36] LABS: CREATINE KINASE MB 1.91 ng/mL (<4.55); TROPONIN I 0.088 ng/mL
--- NOTE | 2020-02-29 16:41 | PDOC PROGRESS REPORT ---
Subjective Progress Note for:: 02/29/20 Subjective:: CRISELDA SHIPMAN is a 74 year old male who presented to the emergency room with a 2-day history of dyspnea. He admits developing dyspnea on the evening of 02/26/2020 which has remained constantly present and progressively worsened to become moderate at rest and is increased to severe with exertion or activity. His dyspnea has been associated with mild generalized anterior chest tightness. He denies other associated or accompanying signs and symptoms. He denies prior similar episodes. He has not identified any additional aggravating or ameliorating factors for his dyspnea. In the emergency room he was found to have chronic atrial fibrillation with a left bundle branch block and a mildly elevated serum troponin at 0.124. His BNP was also mildly elevated at 2290. The emergency room physician contacted Dr. Pierce, his graphics programmer, who recommended he be admitted to observation status with a consult for himself to see the patient in the morning. Patient was subsequently admitted to the telemetry unit on observation status. Patient was tested for COVID-19 in the emergency room at his request and will therefore be a patient under investigation on the COVID unit. 02/29/2020. Saw patient this afternoon, comfortably resting in bed no apparent distress, complaining of being easily winded upon exertion otherwise denies any chest pain, shortness of breath, fever, chills, nausea, vomiting. He is p.o. tolerant and having bowel movement. Reason For Visit: DYSPNEA,DYSPNEA ON EXERTION,CHEST TIGHTNESS Physical Exam Vital Signs: Temp Pulse Resp BP Pulse Ox 97.6 F 51 L 16 170/82 H 92 02/29/20 11:35 02/29/20 14:00 02/29/20 13:45 02/29/20 03:09 02/29/20 13:45 Intake & Output 02/28/20 02/29/20 03/01/20 06:59 06:59 06:59 Intake Total 50 Balance 50 Weight 115.2 kg General appearance: PRESENT: no acute distress, obese Head exam: PRESENT: atraumatic, normocephalic Neck exam: ABSENT: carotid bruit, JVD, lymphadenopathy, thyromegaly Respiratory exam: PRESENT: clear to auscultation benitez. ABSENT: rales, rhonchi, wheezes Cardiovascular exam: PRESENT: bradycardia, RRR. ABSENT: diastolic murmur, rubs, systolic murmur GI/Abdominal exam: PRESENT: normal bowel sounds, soft. ABSENT: distended, guarding, mass, organolmegaly, rebound, tenderness Neurological exam: PRESENT: alert, awake, oriented to person, oriented to place, oriented to time, oriented to situation, CN II-XII grossly intact. ABSENT: motor sensory deficit Results Laboratory Results: 02/28/20 16:00 02/28/20 17:17 02/28/20 02/28/20 02/29/20 16:00 17:17 14:44 Sodium Cancelled 137.7 Potassium Cancelled 4.2 Chloride Cancelled 106 Carbon Dioxide Cancelled 26 Anion Gap Cancelled 6 BUN Cancelled 14 Creatinine Cancelled 0.88 Est GFR ( Amer) Cancelled > 60 Est GFR (Non-Af Amer) Cancelled Glucose Cancelled 143 H Calcium Cancelled 9.5 Magnesium Cancelled 2.0 Total Bilirubin Cancelled 0.9 AST Cancelled 43 Alkaline Phosphatase Cancelled 71 C-Reactive Protein 30.7 H Total Protein Cancelled 6.8 Albumin Cancelled 4.1 02/28/20 02/28/20 02/28/20 16:00 16:00 17:17 Creatine Kinase Cancelled 89 CK-MB (CK-2) Troponin I Cancelled NT-Pro-B Natriuret Pep Cancelled 02/28/20 02/29/20 02/29/20 19:10 02:28 02:28 Creatine Kinase 96 CK-MB (CK-2) 2.13 Troponin I 0.124 0.120 NT-Pro-B Natriuret Pep 2290 H 02/29/20 02/29/20 02/29/20 08:47 08:47 14:44 Creatine Kinase 108 120 CK-MB (CK-2) 2.04 Troponin I 0.102 NT-Pro-B Natriuret Pep 02/29/20 14:44 Creatine Kinase CK-MB (CK-2) 1.91 Troponin I 0.088 NT-Pro-B Natriuret Pep Impressions: Chest X-Ray 02/28/20 12:20 IMPRESSION: HEART ENLARGED WITHOUT FAILURE. NO OTHER SIGNIFICANT RADIOGRAPHIC FINDING IN THE CHEST. Chest/Abdomen CTA 02/28/20 20:33 IMPRESSION:No evidence of pulmonary embolus Basilar atelectasis and small effusions Fatty infiltration of the liver Cardiac enlargement Assessment and Plan - Diagnosis (1) Acute CHF Qualifiers: Heart failure type: diastolic Qualified Code(s): I50.31 - Acute diastolic (congestive) heart failure Is this a current diagnosis for this admission?: Yes Plan: Presented with chest pain, elevated troponins, elevated proBNP and dyspnea on exertion. Chest pain has resolved. CTA negative for PE. Elevated d-dimer. Still complaining of dyspnea on exertion. Troponins trending down. Continue cardiac diet, BRYAN, beta-blockers, diuretics, cardiac diet, fluid restriction strict in and out. (2) Elevated troponin Is this a current diagnosis for this admission?: Yes Plan: Likely NSTEMI type II, due to demand mismatch. Troponins are trending down. Continue telemetry, antiplatelets, beta blockers, statins, BRYAN. Cardiology consulted. Pending recommendations. (3) Atrial fibrillation with controlled ventricular rate Is this a current diagnosis for this admission?: Yes Plan: History of A. fib RVR. Not anticoagulated. Currently actually bradycardic. Home medications are atenolol. Hold medications while patient is bradycardic. Continue telemetry. Resume home meds once bradycardia has resolved. Cardiology has been consulted. Condition pending. (4) CAD (coronary artery disease) Qualifiers: Coronary Disease-Associated Artery/Lesion type: unspecified vessel or lesion type [place] vs. transplanted heart: [place] heart Associated angina: without angina Qualified Code(s): I25.10 - Atherosclerotic heart disease of [place] coronary artery without angina pectoris Is this a current diagnosis for this admission?: Yes Plan: Presented with chest pain and elevated troponins. Chest pain has resolved. Troponins are trending down. Resume home meds. Cardiology consulted. (5) Dyslipidemia Is this a current diagnosis for this admission?: Yes Plan: Resume home meds. Diet and lifestyle modification recommended. Outpatient PCP and cardiology follow-up. (6) HTN (hypertension) Qualifiers: Hypertension type: essential hypertension Is this a current diagnosis for this admission?: Yes Plan: Volume overloaded. Hypertensive. Resume home meds. IV hydralazine and IV metoprolol. Adjust meds as needed. Outpatient PCP follow-up. (7) Morbid obesity with BMI of 40.0-44.9, adult Is this a current diagnosis for this admission?: Yes Plan: BMI 41.0. Diet and lifestyle modification recommended. (8) Bradycardia Is this a current diagnosis for this admission?: Yes Plan: Denies any lightheadedness or syncope or presyncope. Presented with chest pain which has resolved. Continue telemetry. Hold beta blockers. Hold calcium channel leonor. Fall, aspiration precautions. Cardiology on board. Recommendations pending. (9) Suspected COVID-19 virus infection Is this a current diagnosis for this admission?: Yes Plan: Patient believes he has been exposed and had requested to be tested in ED. Low-grade fever, WBC WNL, CRP mildly elevated. Even though no suspicion of COVID-19 due to underlying multiple comorbidities will treat with empiric IV antibiotics, duo nebs, supplemental oxygen, steroids and anticoagulation. Follow-up COVID results. - Time Time Spent with patient: 25-34 minutes Smoking Cessation Education: 3 to 10 minutes Anticipated Discharge Disposition: Home with Home Health Anticipated Discharge Timeframe: within 72 hours
[2020-02-29] MEDS ORDERED: AZITHROMYCIN 500 MG in DEXTROSE 5%-WATER 250 ML IV SCH (18:00)
[2020-02-29] MEDS ORDERED: ISOSORBIDE MONONITRATE 30 MG TAB.ER.24H PO SCH (18:00)
[2020-02-29] MEDS ORDERED: ISOSORBIDE MONONITRATE 60 MG TAB.ER.24H PO SCH (18:00)
--- NOTE | 2020-02-29 19:42 | Progress Note ---
Provider Note Provider Note: CARDIOLOGY PROGRESS NOTE by Dr. Terry Littlejohn on 02/29/2020. SUBJECTIVE: The patien's COVID 19 testing results is awaited.. The patient continues to be in atrial fibrillation with slow ventricular response. The patient does not appear to be aware of any palpitations. He denies any chest pain discomfort. The patient does become bradycardic hence we will decrease the patient's beta-leonor to 12.5 mg p.o. daily. He continues to have left bundle branch block pattern. His troponin was marginally elevated at 0.124 and is now trended down. This does not seem to be a non-ST patient [place]. The patient does have symptoms suggestive of sleep apnea. We will get a pulse oximetry nocturnal. Physical EXAMINATION: The patient morbidly obese. In no acute distress. Selected Entries 02/29/20 16:04 Temperature 98.2 F Temperature Oral Source Pulse Rate 50 L Respiratory 22 H Rate Blood Pressure 156/87 H Blood Pressure 110 Mean BP Location Right Wrist BP Position Supine O2 Sat by Pulse 97 Oximetry Oxygen Delivery Room Air Method HEAD: Is atraumatic normocephalic. EYES: Pupils are equal round regular reactive light accommodation. Extraocular movements are normal. There is no conjunctival pallor. There is no scleral icterus. EARS: Tympanic membranes are intact. External auditory canals are clear. NOSE: There is no deviated nasal septum. There is no inflammation nasal mucous membrane. MOUTH: Mucous membranes of mouth are moist. Tongue is moist. There is no ulcers. There is no bleeding from the gums. THROAT: There is no redness of the oropharynx. There is no exudates. SKIN: There is no skin rashes. There is no delfina-care ecchymosis. There is no skin lesions. NECK: Is supple. There is no JVD carotids are equal there is no bruit there is no lymphadenopathy. There is no goiter. LUNGS: Clear to auscultation percussion. Heart S1-S2 is heard. There is no S3 gallop. There is no S4 gallop. S1 of variable intensity. There is systolic murmur left sternal border and the apex there is no rub. ABDOMEN: Is soft obese nontender there is no hepatosplenomegaly. Bowel sounds are well heard. Extremities femorals are deep. There is no femoral bruits. Leg pulses are well felt. There is no pedal edema. There is no DVT or cellulitis. There is no cyanosis or clubbing. 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 PSYCHIATRIC: The patient judgment site are intact his affect is normal. His EKG shows atrial fibrillation with slow ventricular response. Left bundle branch block pattern. Chest X-Ray 02/28/20 12:20 IMPRESSION: HEART ENLARGED WITHOUT FAILURE. NO OTHER SIGNIFICANT RADIOGRAPHIC FINDING IN THE CHEST. Chest/Abdomen CTA 02/28/20 20:33 IMPRESSION:No evidence of pulmonary embolus Basilar atelectasis and small effusions Fatty infiltration of the liver Cardiac enlargement Labs- All tests 24 hr 02/29/20 02/29/20 02/29/20 02:28 02:28 08:47 D-Dimer Creatine Kinase 96 108 CK-MB (CK-2) 2.13 Troponin I 0.120 C-Reactive Protein 02/29/20 02/29/20 02/29/20 08:47 14:44 14:44 D-Dimer Creatine Kinase 120 CK-MB (CK-2) 2.04 1.91 Troponin I 0.102 0.088 C-Reactive Protein 02/29/20 02/29/20 14:44 14:44 D-Dimer 0.68 H Creatine Kinase CK-MB (CK-2) Troponin I C-Reactive Protein 30.7 H IMPRESSION/RECOMMENDATION: 1. Atrial fibrillation with controlled ventricular response..? Duration of atrial fibrillation. The patient is Javier vacs corrected score is is 4. [2 for patient's age 1 for hypertension and one for patient's coronary artery disease [. Continue Eliquis. Rate is controlled on current beta-leonor dosage. 2. Borderline elevated troponin iron levels. Most likely supply demand mismatch. Secondary to atrial fibrillation. No definite evidence of non-ST elevation [place]. 3. Dyspnea on exertion this is most likely secondary to patient's atrial fibrillation with loss of atrial kick, and patient is obese, deconditioning and ? Pulmonary hypertension. Will check an echo as an outpatient. 4. Abnormal EKG with the patient showing left bundle branch block pattern. 5. Bradycardia, will decrease the patient's beta-leonor dosage. Would recommend that the patient have a 30-day event monitor to see if the patient has tachybradycardia syndrome. 6. Coronary artery disease: History of prior myocardial infarction and history of coronary bypass graft surgery. No anginal symptoms. Later would recommend that the patient have repeat IV Lexiscan Cardiolite stress test. This can be done as an outpatient. 7. Hypertension: Blood pressure high with reasons to the patient's ARB. 8. High suspicion for obstructive sleep apnea: We will check the patient's nocturnal O2 saturation and also would get an outpatient sleep study. Patient reviewed. Medication adjusted. Medications added. Dosage of atenolol decreased. Eliquis added. Medical decision making is of high complexity. Medical regimen and management plan discussed with attending provider on the case. Medical 40-minute spent with patient with more than 50% of the time spent in direct patient care
--- NOTE | 2020-02-29 19:55 | EKG REPORT ---
SEVERITY:- ABNORMAL ECG - ATRIAL FLUTTER, A-RATE 306 CLBBB : Confirmed by: Ever Live MD 29-Feb-2020 19:55:04
--- NOTE | 2020-02-29 19:55 | EKG REPORT ---
SEVERITY:- ABNORMAL ECG - ATRIAL FLUTTER, A-RATE 306 NONSPECIFIC INTRAVENTRICULAR CONDUCTION DELAY MINIMAL ST DEPRESSION, LATERAL LEADS CLBBB : Confirmed by: Ever Live MD 29-Feb-2020 19:54:17
[2020-02-29] MEDS ORDERED: VALSARTAN 80 MG TABLET PO SCH (20:00)
[2020-02-29] MEDS ORDERED: ATORVASTATIN CALCIUM 40 MG TABLET PO SCH (22:00)
[2020-02-29] MEDS ORDERED: VALSARTAN 80 MG TABLET PO ONE (23:59)
[2020-03-01 05:13] LABS: ABSOLUTE MONOCYTES (AUTO) 0.3 10^3/uL (0.1-1.4); ABSOLUTE NEUT (AUTO) 8.8 10^3/uL (1.7-8.2); HEMATOCRIT 41.5 % (37.9-51.0); HEMOGLOBIN 14.5 g/dL (13.5-17.0); MEAN CORPUSCULAR HEMOGLOBIN 31.4 pg (27.0-33.4); MEAN CORPUSCULAR HGB CONC 34.8 g/dL (32.0-36.0); MEAN CORPUSCULAR VOLUME 90 fl (80-97); MONOCYTES % (AUTO) 2.9 % (3-13); PLATELET COUNT 157 10^3/uL (150-450); RED CELL DISTRIBUTION WIDTH 13.9 % (11.5-14.0); SEGMENTED NEUTROPHILS % (AUTO) 87.1 % (42-78); TOTAL CELLS COUNTED % (AUTO) 100 %; WHITE BLOOD COUNT 10.1 10^3/uL (4.0-10.5)
[2020-03-01 05:34] LABS: ALBUMIN 3.9 g/dL (3.5-5.0); ALKALINE PHOSPHATASE 71 U/L (38-126); ANION GAP 10 (5-19); ASPARTATE AMINO TRANSFERASE 44 U/L (17-59); BILIRUBIN,TOTAL 0.8 mg/dL (0.2-1.3); BLOOD UREA NITROGEN 20 mg/dL (7-20); CALCIUM 9.6 mg/dL (8.4-10.2); CARBON DIOXIDE 22 mmol/L (22-30); CHLORIDE 104 mmol/L (98-107); GLUCOSE 192 mg/dL (75-110); TOTAL PROTEIN 6.6 g/dL (6.3-8.2)
[2020-03-01 05:35] LABS: POTASSIUM 4.6 mmol/L (3.6-5.0)
[2020-03-01] MEDS: DEXAMETHASONE SOD PHOSPHATE INJ 4 MG/1 ML VIAL IV SCH (06:24)
[2020-03-01] MEDS: HEPARIN SOD (PORCINE) 5,000 UNIT/ML 1 ML VIAL SUBCUT SCH (06:24)
[2020-03-01] MEDS: IPRATROPIUM/ALBUTEROL 0.5-2.5 MG/3 ML AMPUL NEB SCH (08:00)
[2020-03-01] MEDS: LOSARTAN POTASSIUM 25 MG TABLET PO SCH (09:45)
[2020-03-01] MEDS: FUROSEMIDE 20 MG TABLET PO SCH (09:45)
[2020-03-01] MEDS: DOCUSATE SODIUM 100 MG CAPSULE PO SCH (09:45)
[2020-03-01] MEDS: OMEGA-3 ACID ETHYL ESTERS 1 GM CAPSULE PO SCH (09:46)
[2020-03-01] MEDS: ZINC SULFATE 220 MG CAPSULE PO SCH (09:46)
[2020-03-01] MEDS: EZETIMIBE 10 MG TABLET PO SCH (09:47)
[2020-03-01] MEDS: MULTIVITAMIN TABLET PO SCH (09:47)
[2020-03-01] MEDS: FAMOTIDINE 20 MG TABLET PO SCH (09:47)
[2020-03-01] MEDS ORDERED: VALSARTAN 80 MG TABLET PO SCH (10:00)
[2020-03-01] MEDS ORDERED: ISOSORBIDE MONONITRATE 30 MG TAB.ER.24H PO SCH (10:00)
[2020-03-01] MEDS ORDERED: APIXABAN 5 MG TABLET PO SCH (10:00)
[2020-03-01 12:31] VITALS: BP 134/60
--- NOTE | 2020-03-01 13:16 | PDOC PROGRESS REPORT ---
Subjective Progress Note for:: 03/01/20 Subjective:: CRISELDA SHIPMAN is a 74 year old male who presented to the emergency room with a 2-day history of dyspnea. He admits developing dyspnea on the evening of 02/26/2020 which has remained constantly present and progressively worsened to become moderate at rest and is increased to severe with exertion or activity. His dyspnea has been associated with mild generalized anterior chest tightness. He denies other associated or accompanying signs and symptoms. He denies prior similar episodes. He has not identified any additional aggravating or ameliorating factors for his dyspnea. In the emergency room he was found to have chronic atrial fibrillation with a left bundle branch block and a mildly elevated serum troponin at 0.124. His BNP was also mildly elevated at 2290. The emergency room physician contacted Dr. Pierce, his scientific publications editor, who recommended he be admitted to observation status with a consult for himself to see the patient in the morning. Patient was subsequently admitted to the telemetry unit on observation status. Patient was tested for COVID-19 in the emergency room at his request and will therefore be a patient under investigation on the COVID unit. 02/29/2020. Saw patient this afternoon, comfortably resting in bed no apparent distress, complaining of being easily winded upon exertion otherwise denies any chest pain, shortness of breath, fever, chills, nausea, vomiting. He is p.o. tolerant and having bowel movement. 03/01/2020. No acute events overnight. Patient has tested negative for COVID, still mildly bradycardic however dyspnea on exertion has resolved, patient is p.o. tolerant and ambulatory, denies any fever, chills, nausea, vomiting. Denies any chest pain. Plan to ambulate patient today and see if his heart rate improved, possible discharge tomorrow to follow-up with Dr. Hicks for a 30-day event monitor as outpatient. Reason For Visit: DYSPNEA,DYSPNEA ON EXERTION,CHEST TIGHTNESS Physical Exam Vital Signs: Temp Pulse Resp BP Pulse Ox 98.0 F 52 L 16 134/60 H 94 03/01/20 10:49 03/01/20 10:49 03/01/20 10:49 03/01/20 10:49 03/01/20 10:49 Intake & Output 02/29/20 03/01/20 03/02/20 06:59 06:59 06:59 Intake Total 300 Output Total 525 Balance -225 Weight 115.2 kg 116.9 kg General appearance: PRESENT: no acute distress, morbidly obese Head exam: PRESENT: atraumatic, normocephalic Respiratory exam: PRESENT: clear to auscultation benitez. ABSENT: rales, rhonchi, wheezes Cardiovascular exam: PRESENT: bradycardia, RRR. ABSENT: diastolic murmur, rubs, systolic murmur GI/Abdominal exam: PRESENT: normal bowel sounds, soft. ABSENT: distended, guar ding, mass, organolmegaly, rebound, tenderness Neurological exam: PRESENT: alert, awake, oriented to person, oriented to place, oriented to time, oriented to situation, CN II-XII grossly intact. ABSENT: motor sensory deficit Results Laboratory Results: 03/01/20 04:47 03/01/20 04:47 02/29/20 03/01/20 03/01/20 14:44 04:47 04:47 WBC 10.1 RBC 4.60 Hgb 14.5 Hct 41.5 MCV 90 MCH 31.4 MCHC 34.8 RDW 13.9 Plt Count 157 Seg Neutrophils % 87.1 H Sodium 136.0 L Potassium 4.6 Chloride 104 Carbon Dioxide 22 Anion Gap 10 BUN 20 Creatinine 0.87 Est GFR ( Amer) > 60 Glucose 192 H Calcium 9.6 Magnesium 2.0 Total Bilirubin 0.8 AST 44 Alkaline Phosphatase 71 C-Reactive Protein 30.7 H Total Protein 6.6 Albumin 3.9 02/28/20 02/28/20 02/28/20 16:00 16:00 17:17 Creatine Kinase Cancelled 89 CK-MB (CK-2) Troponin I Cancelled NT-Pro-B Natriuret Pep Cancelled 02/28/20 02/29/20 02/29/20 19:10 02:28 02:28 Creatine Kinase 96 CK-MB (CK-2) 2.13 Troponin I 0.124 0.120 NT-Pro-B Natriuret Pep 2290 H 02/29/20 02/29/20 02/29/20 08:47 08:47 14:44 Creatine Kinase 108 120 CK-MB (CK-2) 2.04 Troponin I 0.102 NT-Pro-B Natriuret Pep 02/29/20 14:44 Creatine Kinase CK-MB (CK-2) 1.91 Troponin I 0.088 NT-Pro-B Natriuret Pep Impressions: Chest X-Ray 02/28/20 12:20 IMPRESSION: HEART ENLARGED WITHOUT FAILURE. NO OTHER SIGNIFICANT RADIOGRAPHIC FINDING IN THE CHEST. Chest/Abdomen CTA 02/28/20 20:33 IMPRESSION:No evidence of pulmonary embolus Basilar atelectasis and small effusions Fatty infiltration of the liver Cardiac enlargement Assessment and Plan - Diagnosis (1) Acute CHF Qualifiers: Heart failure type: diastolic Qualified Code(s): I50.31 - Acute diastolic (congestive) heart failure Is this a current diagnosis for this admission?: Yes Plan: Presented with chest pain, elevated troponins, elevated proBNP and dyspnea on exertion. Chest pain has resolved. CTA negative for PE. Elevated d-dimer. Still complaining of dyspnea on exertion. Troponins trending down. Continue cardiac diet, BRYAN, beta-blockers, diuretics, cardiac diet, fluid restriction strict in and out. (2) Elevated troponin Is this a current diagnosis for this admission?: Yes Plan: Likely NSTEMI type II, due to demand mismatch. Troponins are trending down. Continue telemetry, antiplatelets, beta blockers, statins, BRYAN. Cardiology consulted. Recommendations noted. No intervention planned. (3) Atrial fibrillation with controlled ventricular rate Is this a current diagnosis for this admission?: Yes Plan: History of A. fib RVR. Not anticoagulated. Currently actually bradycardic. Home medications are atenolol. Hold medications while patient is bradycardic. Continue telemetry. Resume home meds once bradycardia has resolved. Cardiology has been consulted. Condition pending. (4) CAD (coronary artery disease) Qualifiers: Coronary Disease-Associated Artery/Lesion type: unspecified vessel or lesion type [place] vs. transplanted heart: [place] heart Associated angina: without angina Qualified Code(s): I25.10 - Atherosclerotic heart disease of [place] coronary artery without angina pectoris Is this a current diagnosis for this admission?: Yes Plan: Presented with chest pain and elevated troponins. Chest pain has resolved. Troponins are trending down. Resume home meds. Cardiology consulted. (5) Dyslipidemia Is this a current diagnosis for this admission?: Yes Plan: Resume home meds. Diet and lifestyle modification recommended. Outpatient PCP and cardiology follow-up. (6) HTN (hypertension) Qualifiers: Hypertension type: essential hypertension Is this a current diagnosis for this admission?: Yes Plan: Euvolemic. Normotensive. Resume home meds. IV hydralazine and IV metoprolol. Adjust meds as needed. Outpatient PCP follow-up. (7) Morbid obesity with BMI of 40.0-44.9, adult Is this a current diagnosis for this admission?: Yes Plan: BMI 41.0. Diet and lifestyle modification recommended. (8) Bradycardia Is this a current diagnosis for this admission?: Yes Plan: Denies any lightheadedness or syncope or presyncope. Presented with chest pain which has resolved. Continue telemetry. Hold beta blockers. Hold calcium channel leonor. Fall, aspiration precautions. Cardiology on board. Recommendations pending. (9) Suspected COVID-19 virus infection Is this a current diagnosis for this admission?: Yes Plan: Patient believes he has been exposed and had requested to be tested in ED. Low-grade fever, WBC WNL, CRP mildly elevated. COVID-19 test came back negative. DC empiric IV antibiotics, duo nebs, supplemental oxygen, steroids and anticoagulation. - Time Time Spent with patient: 25-34 minutes Medications reviewed and adjusted accordingly: Yes Anticipated Discharge Disposition: Home with Home Health Anticipated Discharge Timeframe: within 24 hours
[2020-03-01] MEDS ORDERED: IPRATROPIUM/ALBUTEROL 0.5-2.5 MG/3 ML AMPUL NEB PRN (13:19)
--- NOTE | 2020-03-01 18:27 | Progress Note ---
Provider Note Provider Note: CARDIOLOGY PROGRESS NOTE with Dr. Terry Littlejohn on 03/01/2020. SUBJECTIVE: Patient states his shortness of breath is much better. There is no chest pain or discomfort. He is in atrial fibrillation with very slow ventricular response. Hence his beta-leonor has been discontinued. The question is whether this shortness of breath is secondary to the patient not being able to generate an increased heart rate with exertion due to beta-leonor on board. Hence we will stop the beta-leonor. We will get a 30-day event monitor to see look for any high or low heart rates. As mentioned earlier there is no chest pain or discomfort. The patient's troponin is borderline elevated and is coming trending down. Will later get a IV Lexiscan Cardiolite stress test. Also will get a sleep study as an outpatient. PHYSICAL EXAMINATION: The patient is morbidly obese. In no acute distress Selected Entries 03/01/20 10:49 Temperature 98.0 F Temperature Oral Source Pulse Rate 52 L Respiratory 16 Rate Blood Pressure 134/60 H Blood Pressure 84 Mean BP Location Left Arm BP Position Supine O2 Sat by Pulse 94 Oximetry Oxygen Delivery Room Air Method HEAD: Is atraumatic normocephalic. EYES: Pupils are equal round regular reactive light accommodation. Extraocular movements are normal. There is no conjunctival pallor. There is no scleral icterus. EARS: Tympanic membranes are intact. External auditory canals are clear. NOSE: There is no deviated nasal septum. There is no inflammation nasal mucous membrane. MOUTH: Mucous membranes of mouth are moist. Tongue is moist. There is no ulcers. There is no bleeding from the gums. THROAT: There is no redness of the oropharynx. There is no exudates. SKIN: There is no skin rashes. There is no delfina-care ecchymosis. There is no skin lesions. NECK: Is supple. There is no JVD carotids are equal there is no bruit there is no lymphadenopathy. There is no goiter. LUNGS: Clear to auscultation percussion. Heart S1-S2 is heard. There is no S3 gallop. There is no S4 gallop. S1 of variable intensity. There is systolic murmur left sternal border and the apex there is no rub. ABDOMEN: Is soft obese nontender there is no hepatosplenomegaly. Bowel sounds are well heard. Extremities femorals are deep. There is no femoral bruits. Leg pulses are well felt. There is no pedal edema. There is no DVT or cellulitis. There is no cyanosis or clubbing. PROCUREMENT REPRESENTATIVE: Patient is conscious awake alert oriented x3 with no focal deficit. PSYCHIATRIC: The patient judgment site are intact his affect is normal. Labs- Entire Visit 02/28/20 02/28/20 02/28/20 16:00 16:00 16:00 WBC 9.9 RBC 5.02 Hgb 15.7 Hct 45.6 MCV 91 MCH 31.2 MCHC 34.4 RDW 14.2 H Plt Count 173 Lymph % (Auto) 16.7 [place] % (Auto) 9.1 Eos % (Auto) 0.2 Baso % (Auto) 0.6 Absolute Neuts (auto) 7.2 Absolute Lymphs (auto) 1.6 Absolute Monos (auto) 0.9 Absolute Eos (auto) 0.0 Absolute Basos (auto) 0.1 Seg Neutrophils % 73.4 D-Dimer Sodium Cancelled Potassium Cancelled Chloride Cancelled Carbon Dioxide Cancelled Anion Gap Cancelled BUN Cancelled Creatinine Cancelled Est GFR ( Amer) Cancelled Est GFR (Non-Af Amer) Cancelled Est GFR (MDRD) Non-Af Cancelled Glucose Cancelled Calcium Cancelled Magnesium Cancelled Total Bilirubin Cancelled Direct Bilirubin Cancelled Neonat Total Bilirubin Cancelled Neonat Direct Bilirubin Cancelled Neonat Indirect Bili Cancelled AST Cancelled ALT Cancelled Alkaline Phosphatase Cancelled Creatine Kinase Cancelled CK-MB (CK-2) Troponin I Cancelled C-Reactive Protein NT-Pro-B Natriuret Pep Cancelled Total Protein Cancelled Albumin Cancelled EGFR Cancelled COVID-19 Source COVID-19 ([facility]) 02/28/20 02/28/20 02/28/20 16:43 17:17 19:10 WBC RBC Hgb Hct MCV MCH MCHC RDW Plt Count Lymph % (Auto) [place] % (Auto) Eos % (Auto) Baso % (Auto) Absolute Neuts (auto) Absolute Lymphs (auto) Absolute Monos (auto) Absolute Eos (auto) Absolute Basos (auto) Seg Neutrophils % D-Dimer Sodium 137.7 Potassium 4.2 Chloride 106 Carbon Dioxide 26 Anion Gap 6 BUN 14 Creatinine 0.88 Est GFR ( Amer) > 60 Est GFR (Non-Af Amer) Est GFR (MDRD) Non-Af > 60 Glucose 143 H Calcium 9.5 Magnesium 2.0 Total Bilirubin 0.9 Direct Bilirubin 0.0 Neonat Total Bilirubin Not Reportable Neonat Direct Bilirubin Not Reportable Neonat Indirect Bili Not Reportable AST 43 ALT 54 H Alkaline Phosphatase 71 Creatine Kinase 89 CK-MB (CK-2) Troponin I 0.124 C-Reactive Protein NT-Pro-B Natriuret Pep 2290 H Total Protein 6.8 Albumin 4.1 EGFR COVID-19 Source NASOPHARYNGEAL COVID-19 ([facility]) NOT DETECTED 02/29/20 02/29/20 02/29/20 02:28 02:28 08:47 WBC RBC Hgb Hct MCV MCH MCHC RDW Plt Count Lymph % (Auto) [place] % (Auto) Eos % (Auto) Baso % (Auto) Absolute Neuts (auto) Absolute Lymphs (auto) Absolute Monos (auto) Absolute Eos (auto) Absolute Basos (auto) Seg Neutrophils % D-Dimer Sodium Potassium Chloride Carbon Dioxide Anion Gap BUN Creatinine Est GFR ( Amer) Est GFR (Non-Af Amer) Est GFR (MDRD) Non-Af Glucose Calcium Magnesium Total Bilirubin Direct Bilirubin Neonat Total Bilirubin Neonat Direct Bilirubin Neonat Indirect Bili AST ALT Alkaline Phosphatase Creatine Kinase 96 108 CK-MB (CK-2) 2.13 Troponin I 0.120 C-Reactive Protein NT-Pro-B Natriuret Pep Total Protein Albumin EGFR COVID-19 Source COVID-19 ([facility]) 02/29/20 02/29/20 02/29/20 08:47 14:44 14:44 WBC RBC Hgb Hct MCV MCH MCHC RDW Plt Count Lymph % (Auto) [place] % (Auto) Eos % (Auto) Baso % (Auto) Absolute Neuts (auto) Absolute Lymphs (auto) Absolute Monos (auto) Absolute Eos (auto) Absolute Basos (auto) Seg Neutrophils % D-Dimer Sodium Potassium Chloride Carbon Dioxide Anion Gap BUN Creatinine Est GFR ( Amer) Est GFR (Non-Af Amer) Est GFR (MDRD) Non-Af Glucose Calcium Magnesium Total Bilirubin Direct Bilirubin Neonat Total Bilirubin Neonat Direct Bilirubin Neonat Indirect Bili AST ALT Alkaline Phosphatase Creatine Kinase 120 CK-MB (CK-2) 2.04 1.91 Troponin I 0.102 0.088 C-Reactive Protein NT-Pro-B Natriuret Pep Total Protein Albumin EGFR COVID-19 Source COVID-19 ([facility]) 02/29/20 02/29/20 03/01/20 14:44 14:44 04:47 WBC 10.1 RBC 4.60 Hgb 14.5 Hct 41.5 MCV 90 MCH 31.4 MCHC 34.8 RDW 13.9 Plt Count 157 Lymph % (Auto) 10.0 L [place] % (Auto) 2.9 L Eos % (Auto) 0.0 Baso % (Auto) 0.0 Absolute Neuts (auto) 8.8 H Absolute Lymphs (auto) 1.0 Absolute Monos (auto) 0.3 Absolute Eos (auto) 0.0 Absolute Basos (auto) 0.0 Seg Neutrophils % 87.1 H D-Dimer 0.68 H Sodium Potassium Chloride Carbon Dioxide Anion Gap BUN Creatinine Est GFR ( Amer) Est GFR (Non-Af Amer) Est GFR (MDRD) Non-Af Glucose Calcium Magnesium Total Bilirubin Direct Bilirubin Neonat Total Bilirubin Neonat Direct Bilirubin Neonat Indirect Bili AST ALT Alkaline Phosphatase Creatine Kinase CK-MB (CK-2) Troponin I C-Reactive Protein 30.7 H NT-Pro-B Natriuret Pep Total Protein Albumin EGFR [facility] 03/01/20 04:47 WBC RBC Hgb Hct MCV MCH MCHC RDW Plt Count Lymph % (Auto) [place] % (Auto) Eos % (Auto) Baso % (Auto) Absolute Neuts (auto) Absolute Lymphs (auto) Absolute Monos (auto) Absolute Eos (auto) Absolute Basos (auto) Seg Neutrophils % D-Dimer Sodium 136.0 L Potassium 4.6 Chloride 104 Carbon Dioxide 22 Anion Gap 10 BUN 20 Creatinine 0.87 Est GFR ( Amer) > 60 Est GFR (Non-Af Amer) Est GFR (MDRD) Non-Af > 60 Glucose 192 H Calcium 9.6 Magnesium 2.0 Total Bilirubin 0.8 Direct Bilirubin 0.0 Neonat Total Bilirubin Not Reportable Neonat Direct Bilirubin Not Reportable Neonat Indirect Bili Not Reportable AST 44 ALT 54 H Alkaline Phosphatase 71 Creatine Kinase CK-MB (CK-2) Troponin I C-Reactive Protein NT-Pro-B Natriuret Pep Total Protein 6.6 Albumin 3.9 EGFR [facility] ([facility]) Chest X-Ray 02/28/20 12:20 IMPRESSION: HEART ENLARGED WITHOUT FAILURE. NO OTHER SIGNIFICANT RADIOGRAPHIC FINDING IN THE CHEST. Chest/Abdomen CTA 02/28/20 20:33 IMPRESSION:No evidence of pulmonary embolus Basilar atelectasis and small effusions Fatty infiltration of the liver Cardiac enlargement IMPRESSION/RECOMMENDATION: 1. Atrial fibrillation with controlled ventricular response..? Duration of atrial fibrillation. The patient is Javier vacs corrected score is is 4. [2 for patient's age 1 for hypertension and one for coronary artery disease]. Continue patient on Eliquis. We will stop the patient's beta-leonor. As mentioned earlier we will get outpatient 30-day event monitor. To look for any increased heart rate or slow very slow heart rates. Also will get a IV Lexiscan and Cardiolite stress as an outpatient. 2. Borderline elevated troponin iron levels. Most likely supply demand mismatch. Secondary to atrial fibrillation. No definite evidence of non-ST elevation HI. Patient is asymptomatic with no chest pain. Will later as an outpatient get IV Lexiscan Cardiolite stress test. 3. Dyspnea on exertion this is most likely secondary to patient's atrial fibril lation with loss of atrial kick, and patient is obese, deconditioning and ? Pulmonary hypertension. Will check an echo as an outpatient. 4. Abnormal EKG with the patient showing left bundle branch block pattern. The left bundle branch block pattern is chronic. 5. Bradycardia, will decrease the patient's beta-leonor dosage. Would recommend that the patient have a 30-day event monitor to see if the patient has tachybradycardia syndrome. 6. Coronary artery disease: History of prior myocardial infarction and history of coronary bypass graft surgery. No anginal symptoms. Later would recommend that the patient have repeat IV Lexiscan Cardiolite stress test. This can be done as an outpatient. 7. Hypertension: Blood pressure is well controlled. Continue current medication. 8. High suspicion for obstructive sleep apnea: We will check the patient's nocturnal O2 saturation and also would get an outpatient sleep study. MEDICATIONS reviewed. Medical regimen and management plan discussed with attending provider on the case. Medical decision making of moderate complexity. Cardiac status is stable. Okay to discharge the patient. Will follow the patient in the office. 40 minutes spent as patient more than 50% time spent in direct patient care. We will sign off.
--- NOTE | 2020-03-07 16:12 | PDOC DISCHARGE SUMMARY ---
Impression - Admit/DC Date/PCP Admission Date/Primary Care Provider: 02/28/20 21:29 ABELINO BANUELOS PA-C Discharge Date: 03/01/20 - Discharge Diagnosis (1) Acute CHF Is this a current diagnosis for this admission?: Yes (2) Elevated troponin Is this a current diagnosis for this admission?: Yes (3) Atrial fibrillation with controlled ventricular rate Is this a current diagnosis for this admission?: Yes (4) CAD (coronary artery disease) Is this a current diagnosis for this admission?: Yes (5) Dyslipidemia Is this a current diagnosis for this admission?: Yes (6) HTN (hypertension) Is this a current diagnosis for this admission?: Yes (7) Morbid obesity with BMI of 40.0-44.9, adult Is this a current diagnosis for this admission?: Yes (8) Bradycardia Is this a current diagnosis for this admission?: Yes (9) Suspected COVID-19 virus infection Is this a current diagnosis for this admission?: Yes - Assessment Summary: Patient will be admitted to the medical floor in a telemetry bed where he will receive routine supportive and symptomatic cares. Cardiology consultation with Dr. Infante will be obtained. Serial cardiac enzymes will be performed. He will receive morphine sulfate 2 to 4 mg IV every 2 hours as needed for pain. He will receive Ativan 1 mg IV every 4 hours as needed for anxiety or restlessness. He will receive supplemental oxygen via nasal cannula if needed to maintain an adequate oxygen saturation. He will be on a cardiac diet. His usual medications will be resumed, as appropriate, when his medication list has been verified and reconciled. Additional laboratory and/or radiographic evaluations will be obtained as needed. - Additional Information Resuscitation Status: Full Code Discharge Diet: Cardiac Discharge Activity: Activity As Tolerated, Balance Activity w/Rest, Weigh Daily Referrals: GRIS INFANTE MD [ACTIVE STAFF] - Follow up as needed Prescriptions: Apixaban [Eliquis 5 mg Tablet] 5 mg PO BID 30 Days #60 tablet Isosorbide Mononitrate [Imdur 60 mg Tablet.er] 60 mg PO DAILY 30 Days #30 tab.sr.24h Home Medications: Clopidogrel Bisulfate [Plavix 75 mg Tablet] 75 mg PO DAILY 11/06/11 Multivitamin [Multivitamins] 1 cap PO DAILY 11/06/11 Telmisartan [Micardis 20 mg Tablet] 20 mg PO Q12 11/06/11 Ezetimibe [Zetia 10 mg Tablet] 10 mg PO DAILY 11/24/13 Rosuvastatin Calcium [Crestor 20 mg Tablet] 20 mg PO DAILY 12/17/15 Qulin-3/Dha/Epa/Fish Oil [Fish Oil 1,000 mg Softgel] 1 cap PO DAILY 02/28/20 Furosemide [Lasix 20 mg Tablet] 20 mg PO QAM 02/29/20 Multivit-Min/FA/Lycopen/Lutein [Centrum Silver Men Tablet] 1 each PO DAILY 02/29/20 Apixaban [Eliquis 5 mg Tablet] 5 mg PO BID 30 Days #60 tablet 03/01/20 Isosorbide Mononitrate [Imdur 60 mg Tablet.er] 60 mg PO DAILY 30 Days #30 tab.sr.24h 03/01/20 History of Present Illiness History of Present Illness: CRISLEDA SHIPMAN is a 74 year old male who presented to the emergency room with a 2-day history of dyspnea. He admits developing dyspnea on the evening of 02/26/2020 which has remained constantly present and progressively worsened to become moderate at rest and is increased to severe with exertion or activity. His dyspnea has been associated with mild generalized anterior chest tightness. He denies other associated or accompanying signs and symptoms. He denies prior similar episodes. He has not identified any additional aggravating or ameliorating factors for his dyspnea. In the emergency room he was found to have chronic atrial fibrillation with a left bundle branch block and a mildly elevated serum troponin at 0.124. His BNP was also mildly elevated at 2290. The emergency room physician contacted Dr. 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 Patient was subsequently admitted to the telemetry unit on observation status. Patient was tested for COVID-19 in the emergency room at his request and will therefore be a patient under investigation on the COVID unit. Hospital Course Hospital Course: (1) Acute CHF Presented with chest pain, elevated troponins, elevated proBNP and dyspnea on exertion. Chest pain has resolved. CTA negative for PE. Elevated d-dimer. Still complaining of dyspnea on exertion. Troponins trending down. Was started on cardiac diet, BRYAN, beta-blockers, diuretics, cardiac diet, fluid restriction strict in and out. Euvolemic at the time of discharge. (2) Elevated troponin Likely NSTEMI type II, due to demand mismatch. Troponins are trending down. Was started on telemetry, antiplatelets, beta blockers, statins, BRYAN. Cardiology consulted. Recommendations noted. No intervention planned. Advised to follow-up with Dr. Hicks as outpatient. (3) Atrial fibrillation with controlled ventricular rate History of A. fib RVR. Not anticoagulated. Currently actually bradycardic. Home medications are atenolol. Hold medications while patient is bradycardic. Was advised to resume home meds once bradycardia has resolved. Cardiology consulted. Recommendations noted. (4) CAD (coronary artery disease) Presented with chest pain and elevated troponins. Chest pain has resolved. Likely due to musculoskeletal pain Troponins trended down. Admitted to telemetry and resumed home meds. Cardiology consulted. Recommendations noted. Denies any chest pain at the time of discharge. (5) Dyslipidemia Resumed home meds. Diet and lifestyle modification recommended. Outpatient PCP and cardiology follow-up. (6) HTN (hypertension) Euvolemic. Normotensive. Resumed home meds. IV hydralazine and IV metoprolol. Adjust meds as needed. Outpatient PCP follow-up. (7) Morbid obesity with BMI of 40.0-44.9, adult BMI 41.0. Diet and lifestyle modification recommended. (8) Bradycardia Denied any lightheadedness or syncope or presyncope. Presented with chest pain which has resolved. Cardiology consulted. Recommendation was to DC beta-blockers and calcium channel blockers. Patient was asked to follow-up with Dr. Hicks to be reevaluated if he could be restarted on beta-blockers. (9) Suspected COVID-19 virus infection Patient believes he has been exposed and had requested to be tested in ED. Low-grade fever, WBC WNL, CRP mildly elevated. COVID-19 test came back negative. Started on empiric IV antibiotics, duo nebs, supplemental oxygen, steroids and anticoagulation. DC antibiotics once results of COVID-19 came back negative. Physical Exam Vital Signs: Temp Pulse Resp BP Pulse Ox 98.0 F 52 L 16 134/60 H 94 03/01/20 13:35 03/01/20 13:35 03/01/20 13:35 03/01/20 10:49 03/01/20 13:35 General appearance: PRESENT: no acute distress, morbidly obese, well-developed, well-nourished Head exam: PRESENT: atraumatic, normocephalic Neck exam: ABSENT: carotid bruit, JVD, lymphadenopathy, thyromegaly Respiratory exam: PRESENT: clear to auscultation benitez. ABSENT: rales, rhonchi, wheezes Cardiovascular exam: PRESENT: RRR. ABSENT: diastolic murmur, rubs, systolic murmur GI/Abdominal exam: PRESENT: normal bowel sounds, soft. ABSENT: distended, guarding, mass, organolmegaly, rebound, tenderness Extremities exam: PRESENT: full ROM. ABSENT: calf tenderness, clubbing, pedal edema Neurological exam: PRESENT: alert, awake, oriented to person, oriented to place, oriented to time, oriented to situation, CN II-XII grossly intact. ABSENT: motor sensory deficit Results Laboratory Results: WBC 10.1 10^3/uL (4.0-10.5) 03/01/20 04:47 RBC 4.60 10^6/uL (4.35-5.55) 03/01/20 04:47 Hgb 14.5 g/dL (13.5-17.0) 03/01/20 04:47 Hct 41.5 % (37.9-51.0) 03/01/20 04:47 MCV 90 fl (80-97) 03/01/20 04:47 MCH 31.4 pg (27.0-33.4) 03/01/20 04:47 MCHC 34.8 g/dL (32.0-36.0) 03/01/20 04:47 RDW 13.9 % (11.5-14.0) 03/01/20 04:47 Plt Count 157 10^3/uL (150-450) 03/01/20 04:47 Lymph % (Auto) 10.0 % (13-45) L 03/01/20 04:47 Amite % (Auto) 2.9 % (3-13) L 03/01/20 04:47 Eos % (Auto) 0.0 % (0-6) 03/01/20 04:47 Baso % (Auto) 0.0 % (0-2) 03/01/20 04:47 Absolute Neuts (auto) 8.8 10^3/uL (1.7-8.2) H 03/01/20 04:47 Absolute Lymphs (auto) 1.0 10^3/uL (0.5-4.7) 03/01/20 04:47 Absolute Monos (auto) 0.3 10^3/uL (0.1-1.4) 03/01/20 04:47 Absolute Eos (auto) 0.0 10^3/uL (0.0-0.6) 03/01/20 04:47 Absolute Basos (auto) 0.0 10^3/uL (0.0-0.2) 03/01/20 04:47 Seg Neutrophils % 87.1 % (42-78) H 03/01/20 04:47 D-Dimer 0.68 ug/mL (0.00-0.50) H 02/29/20 14:44 Sodium 136.0 mmol/L (137-145) L 03/01/20 04:47 Potassium 4.6 mmol/L (3.6-5.0) 03/01/20 04:47 Chloride 104 mmol/L (98-107) 03/01/20 04:47 Carbon Dioxide 22 mmol/L (22-30) 03/01/20 04:47 Anion Gap 10 (5-19) 03/01/20 04:47 BUN 20 mg/dL (7-20) 03/01/20 04:47 Creatinine 0.87 mg/dL (0.52-1.25) 03/01/20 04:47 Est GFR ( Amer) > 60 (>60) 03/01/20 04:47 Est GFR (Non-Af Amer) Cancelled 02/28/20 16:00 Est GFR (MDRD) Non-Af > 60 (>60) 03/01/20 04:47 Glucose 192 mg/dL (75-110) H 03/01/20 04:47 Calcium 9.6 mg/dL (8.4-10.2) 03/01/20 04:47 Magnesium 2.0 mg/dL (1.6-2.3) 03/01/20 04:47 Total Bilirubin 0.8 mg/dL (0.2-1.3) 03/01/20 04:47 Direct Bilirubin 0.0 mg/dL (0.0-0.4) 03/01/20 04:47 Neonat Total Bilirubin Not Reportable 03/01/20 04:47 Neonat Direct Bilirubin Not Reportable 03/01/20 04:47 Neonat Indirect Bili Not Reportable 03/01/20 04:47 AST 44 U/L (17-59) 03/01/20 04:47 ALT 54 U/L (<50) H 03/01/20 04:47 Alkaline Phosphatase 71 U/L (38-126) 03/01/20 04:47 Creatine Kinase 120 U/L (55-170) 02/29/20 14:44 CK-MB (CK-2) 1.91 ng/mL (<4.55) 02/29/20 14:44 Troponin I 0.088 ng/mL 02/29/20 14:44 C-Reactive Protein 30.7 mg/L (<10.0) H 02/29/20 14:44 NT-Pro-B Natriuret Pep 2290 pg/mL (<450) H 02/28/20 19:10 Total Protein 6.6 g/dL (6.3-8.2) 03/01/20 04:47 Albumin 3.9 g/dL (3.5-5.0) 03/01/20 04:47 EGFR Cancelled 02/28/20 16:00 COVID-19 Source NASOPHARYNGEAL 02/28/20 16:43 COVID-19 (KELVIN) NOT DETECTED 02/28/20 16:43 02/28/20 02/28/20 02/29/20 16:00 19:10 02:28 CK-MB (CK-2) 2.13 Troponin I Cancelled 0.124 0.120 NT-Pro-B Natriuret Pep Cancelled 2290 H 02/29/20 02/29/20 08:47 14:44 CK-MB (CK-2) 2.04 1.91 Troponin I 0.102 0.088 NT-Pro-B Natriuret Pep Impressions: Chest X-Ray 02/28/20 12:20 IMPRESSION: HEART ENLARGED WITHOUT FAILURE. NO OTHER SIGNIFICANT RADIOGRAPHIC FINDING IN THE CHEST. Chest/Abdomen CTA 02/28/20 20:33 IMPRESSION:No evidence of pulmonary embolus Basilar atelectasis and small effusions Fatty infiltration of the liver Cardiac enlargement Stroke Is this a Stroke Patient?: No Acute Heart Failure - Is this a Heart Failure Patient?: No
== END 2020-03-01 14:45 | disposition home or self-care (01) ==
LOC: ER 11:16 → EH 21:29 → 3N 02-29 02:58
PROVIDERS: ADMIT Emergency Medicine; ATTEND Internal Medicine
DX: I11.0 Hypertensive heart disease with heart failure (principal); I50.43 Acute on chronic combined systolic (congestive) and diastolic (congestive) heart failure; I48.20 Chronic atrial fibrillation, unspecified; I25.10 Atherosclerotic heart disease of native coronary artery without angina pectoris; R79.89 Other specified abnormal findings of blood chemistry; R00.1 Bradycardia, unspecified; E66.01 Morbid (severe) obesity due to excess calories; I25.2 Old myocardial infarction; I42.9 Cardiomyopathy, unspecified; I44.7 Left bundle-branch block, unspecified; E78.2 Mixed hyperlipidemia; M19.90 Unspecified osteoarthritis, unspecified site; Z68.41 Body mass index [BMI] 40.0-44.9, adult; Z79.02 Long term (current) use of antithrombotics/antiplatelets; Z79.899 Other long term (current) drug therapy; Z20.828 Contact with and (suspected) exposure to other viral communicable diseases; Z95.1 Presence of aortocoronary bypass graft; Z87.891 Personal history of nicotine dependence; Z82.49 Family history of ischemic heart disease and other diseases of the circulatory system
CPT/HCPCS: 93005 ×2; 99285; 96372; 36415 ×3; 82553; 82550 ×2; 83735 ×2; 85025 ×2; 86140; 80053 ×2; 84484 ×2; 85379; 83880; 71045; 71275; 93010 ×2; 94640 ×3; G0378 ×3; U0003; A9270 ×23; J1644 ×2; J1100 ×2; J1650; J3490 ×2; J7060; J0456; J0696; C9803; 87635